=== PATIENT | male | born 1975 | race Caucasian/White ===

== ENCOUNTER → 2020-03-17 11:02 | Outpatient (BNVA) | payer MEDICAID, SELFPAY | PROVIDERS: Visit Provider Nurse Practitioner Family | DX: E11.9 Type 2 diabetes mellitus without complications (principal); Z79.4 Long term (current) use of insulin; R25.2 Cramp and spasm | CPT/HCPCS: 80053; 82044; 83036; 83735 ==

== ENCOUNTER → 2020-07-07 11:16 | Outpatient (BNVA) | payer MEDICAID, SELFPAY | PROVIDERS: Visit Provider Nurse Practitioner Family | DX: E11.9 Type 2 diabetes mellitus without complications (principal); E78.5 Hyperlipidemia, unspecified; F41.9 Anxiety disorder, unspecified | CPT/HCPCS: 80061; 82550; 83036; 84460 ==

== ENCOUNTER → 2021-02-17 10:02 | Outpatient (BNVA) | payer MEDICAID, SELFPAY | PROVIDERS: Visit Provider Nurse Practitioner Family | DX: E78.5 Hyperlipidemia, unspecified (principal); I10 Essential (primary) hypertension; E11.9 Type 2 diabetes mellitus without complications | CPT/HCPCS: 80053; 80061; 82043; 83036 ==

== ENCOUNTER → 2021-06-16 08:33 | Outpatient (BNVA) | payer BC, MEDICAID, SELFPAY | PROVIDERS: PCP Nurse Practitioner Family; Visit Provider Nurse Practitioner Family | DX: R35.0 Frequency of micturition (principal); Z79.899 Other long term (current) drug therapy; E11.9 Type 2 diabetes mellitus without complications; F41.9 Anxiety disorder, unspecified | CPT/HCPCS: 80053; 81000; 83036 ==

== ENCOUNTER → 2021-06-25 11:16 | Outpatient (BNVA) | payer BC, MEDICAID, SELFPAY | PROVIDERS: PCP Nurse Practitioner Family; Visit Provider Nurse Practitioner Family | DX: R74.8 Abnormal levels of other serum enzymes (principal); N48.89 Other specified disorders of penis | CPT/HCPCS: 80074; 82977; 83615; 84450; 84460; 86780; 87530 ==

== ENCOUNTER → 2021-06-26 10:03 | Outpatient (BNVA) | payer BC, MEDICAID, SELFPAY | PROVIDERS: PCP Nurse Practitioner Family; Visit Provider Nurse Practitioner Family | DX: R74.8 Abnormal levels of other serum enzymes (principal); N48.9 Disorder of penis, unspecified; R79.89 Other specified abnormal findings of blood chemistry; A51.0 Primary genital syphilis | CPT/HCPCS: 84075 ==

== ENCOUNTER 2021-07-02 11:29 | Outpatient (CLI) | payer BC, MEDICAID, SELFPAY ==
--- NOTE | 2021-07-02 11:00 | US_ITS ---
WS: [id number] Ultrasound pelvis, male. HISTORY: Pelvic pain. Possible hernia. Urinary bladder is well distended. No free fluid in the pelvis. No bladder wall thickening. Enlarged abnormal lymph node at the RIGHT lower quadrant. Patient directed marketing communication manager to area of pain. There is diffuse thickening of the cortex. There are additional smaller lymph nodes. Largest lymph node in the RIGHT lower quadrant measures 2.6 x 2.2 x 3.2 cm. Abdominal wall appears intact. No hernia identified. US/US pelvic complete* [id number] IMPRESSION: 1. No inguinal hernia is identified. 2. Lymphadenopathy in the RIGHT lower quadrant corresponds to the area of pain and discomfort as directed by the patient. Recommend follow-up CT abdomen and p bandar. Etiology of these abnormal lymph notes needs to be confirmed.
--- NOTE | 2021-07-02 11:00 | US_ITS ---
WS: [id number] TESTICULAR ULTRASOUND HISTORY: R10.31 - Right lower quadrant pain COMPARISON: None available. TECHNIQUE: Real-time and color Doppler imaging or utilized to perform a testicular ultrasound. Right testicle: 3.8 cm x 3.0 cm x 2.8 cm. Normal size and echogenicity. No mass or torsion. There is very slight increased vascularity within the testicle. No mass. Small simple hydrocele. Mild scrotal wall thickening. Right epididymis: Normal epididymis with no increased vascularity. Left testicle: 4.2 cm x 3.1 cm x 2.2 cm. Normal size and echogenicity. No mass or torsion. Normal color Doppler is present throughout. Systolic and diastolic velocities are both present. No significant hydrocele. Left epididymis: Normal epididymis with no increased vascularity. US/US scrotum [id number] IMPRESSION: 1. Mild increased vascularity within the RIGHT testicle as compared to the LEF T with a small adjacent hydrocele. Suspect mild orchitis. 2. No testicular mass. 3. Mild scrotal wall thickening.
--- NOTE | 2021-07-02 11:42 | US_ITS ---
WS: [id number] RIGHT UPPER QUADRANT ULTRASOUND HISTORY: LIVER PAIN COMPARISON: None available. Liver: 17.2 cm in length. Minimally enlarged liver. No hepatic steatosis. No bile duct dilatation or mass. Gallbladder: Normally distended gallbladder with no stones or wall thickening. CBD: 0.4 cm Pancreas: Normal size and echogenicity. Right kidney: 11.9 cm in length. Normal size and echogenicity. No hydronephrosis or mass. Aorta and IVC: Unremarkable abdominal aorta and IVC. No ascites. Benign-appearing lymph node at the michael hepatis. US/US abdomen limited [id number] IMPRESSION: Normal RIGHT upper quadrant ultrasound.
== END 2021-07-02 11:30 | disposition home or self-care (01) ==
LOC: RAD 11:32
PROVIDERS: PCP Nurse Practitioner Family; Visit Provider Surgery
DX: R10.31 Right lower quadrant pain (principal); R10.2 Pelvic and perineal pain
CPT/HCPCS: 76705; 76856; 76870

== ENCOUNTER → 2021-10-12 14:27 | Outpatient (BNVA) | payer BC, MEDICAID, SELFPAY | PROVIDERS: PCP Nurse Practitioner Family; Visit Provider Internal Medicine | DX: E10.65 Type 1 diabetes mellitus with hyperglycemia (principal); E16.0 Drug-induced hypoglycemia without coma; E78.5 Hyperlipidemia, unspecified; T38.3X5A Adverse effect of insulin and oral hypoglycemic [antidiabetic] drugs, initial encounter; Z79.4 Long term (current) use of insulin; F17.200 Nicotine dependence, unspecified, uncomplicated | CPT/HCPCS: 99214 ==

== ENCOUNTER 2021-10-12 15:32 | Outpatient (CLI) | payer BC, MEDICAID, SELFPAY ==
[2021-10-12 16:27] LABS: Alanine Aminotransferase 23 U/L (0-41); Albumin Level 4.6 g/dL (3.5-5.2); Alkaline Phosphatase 182 IU/L (40-130); Anion Gap 19.5 (5-19); Aspartate Amino Transferase 15 U/L (0-40); Blood Urea Nitrogen 9 mg/dL (6-20); Calcium 9.2 mg/dL (8.5-10.5); Carbon Dioxide 25 mmol/L (22-29); Chloride 98 mmol/L (98-107); Chol HDL Ratio 6.78 mg/dL (1.0-5.00); Cholesterol 217 mg/dL (0-200); Globulin 2.9 g/dL (1.3-4.6); Glomerular Filtration Rate 120.9 mL/min (90-130); Glucose 102 mg/dL (65-115); HDL Cholesterol 32 mg/dL (60-100); LDL Cholesterol Calculated 152 mg/dL (50-129); LDL HDL Ratio 4.75 RATIO (0.00-3.22); Osmolality Calculated 287 mOsm/kg (285-295); Potassium 3.5 mmol/L (3.5-5.1); Sodium 139 mmol/L (136-145); Total Protein 7.5 g/dL (6.6-8.7); Triglycerides 167 mg/dL (0-150)
[2021-10-12 16:51] LABS: Estmated Average Glucose 286; Hemoglobin A1C 11.6 % (4.0-6.0)
[2021-10-12 17:08] LABS: Creatinine Urine, Random 88 mg/dL (39-259); Microalbum Creatinine Ratio Ur 34 mg/dL (0-20); Microalbumin Random Urine 3 ug/dL (0-20)
== END 2021-10-12 15:33 | disposition home or self-care (01) ==
LOC: LAB 15:34
PROVIDERS: Visit Provider Internal Medicine
DX: E10.65 Type 1 diabetes mellitus with hyperglycemia (principal); E78.5 Hyperlipidemia, unspecified
CPT/HCPCS: 36415; 80053; 80061; 82044; 83036

== ENCOUNTER 2022-03-05 00:42 | Observation (INO) | payer BC, MEDICAID, SELFPAY ==
[2022-03-04] VITALS (46 sets, daily range): BP systolic 142; BP diastolic 107; PULSE 70–111; RESP 12–28; TEMP 36.8; O2SAT 97–100
[2022-03-04 20:28] LABS: Glucose Point of Care 192 mg/dL (70-110)
[2022-03-04 21:18] LABS: Glucose Point of Care 207 mg/dL (70-110)
[2022-03-04] MEDS: sodium chloride 0.9% 1,000 ML 30 ML IV (21:18)
[2022-03-04 21:19] LABS: Basophils # 0.1 10^3/uL (0.0-0.1); Basophils % 0.6 %; Eosinophils # 0.1 10^3/uL (0.0-0.8); Eosinophils % 0.6 %; Hematocrit 49.3 % (42.0-52.0); Hemoglobin 16.3 g/dL (11.7-16.6); Lymphocytes # 3.3 10^3/uL (0.8-4.8); Lymphocytes % 26.6 %; Mean Corpuscular HGB Conc 33.1 g/dL (30.0-36.0); Mean Corpuscular Volume 93.9 fl (80-94); Mean Platelet Volume 9.8 fL (7.4-10.4); Monocytes # 0.6 10^3/uL (0.2-0.9); Monocytes % 5.1 %; Neutrophils # 8.26 10^3/uL (1.8-7.7); Neutrophils % 66.6 %; Nucleated Red Blood Cells % 0 %; Platelet Count 344 10^3/cmm (130-400); Red Blood Count 5.25 10^6/uL (4.1-5.3); Red Cell Distribution Width 12.9 % (12.1-15.1); White Blood Count 12.4 10^3/uL (4.0-10.0)
[2022-03-04] MEDS: insulin regular-human 250 UNIT in sodium chloride 0.9% 250 ML IV (21:20)
[2022-03-04 21:33] LABS: INR 0.95 (0.8-1.2)
[2022-03-04 21:36] LABS: Alanine Aminotransferase 12 U/L (0-41); Albumin Level 4.6 g/dL (3.5-5.2); Alkaline Phosphatase 111 IU/L (40-130); Anion Gap 27.9 (5-19); Aspartate Amino Transferase 12 U/L (0-40); Blood Urea Nitrogen 10 mg/dL (6-20); Carbon Dioxide 13 mmol/L (22-29); Chloride 93 mmol/L (98-107); Globulin 2.4 g/dL (1.3-4.6); Glomerular Filtration Rate 90.4 mL/min (90-130); Glucose 224 mg/dL (65-115); Osmolality Calculated 274 mOsm/kg (285-295); Potassium 4.9 mmol/L (3.5-5.1); Sodium 129 mmol/L (136-145); Total Bilirubin 1.6 mg/dL (0.15-1.2)
[2022-03-04 21:39] LABS: Ketone (Acetest) Serum Positive (Negative)
[2022-03-04 21:40] LABS: Estmated Average Glucose 283; Hemoglobin A1C 11.5 % (4.0-6.0)
[2022-03-04 22:11] LABS: Glucose Point of Care 231 mg/dL (70-110)
--- NOTE | 2022-03-04 22:46 | P.HP_ITS ---
Providers/Chief Complaint Admitting Physician: Bryan Jiménez MD Chief Complaint: DKA History of Present Illness Villa Cooper is a 46 year old male with h/o poorly controlled IDDM who stated he has had nausea, vomiting and diarrhea for the past week. Patient seen at outside facility and given some IVF for dehydration and discharged home. Patient subsequently continued to be symptomatic and also described myalgias and ongoing nausea. Patient states he was unable to keep anything down. He went to [facility] and was noted to be in DKA. Patient has had previous episodes of same. Patient was started on IVF and transferred here. On arrival, labs ordered- and noted to have blood sugar of 224, CO2 of 13 with elevated AG of 27.9 and positive serum ketones. Patient is hemodynamically stable. He denies further nausea, however, does have heartburn. Overall he feels improved. Review of Systems General: Reports: 10 or more systems reviewed and unremarkable except in HPI and below Const: Reports: body aches, fatigue and malaise; Denies: fever(s) or chills Eyes: Denies: change in vision or blurry vision ENMT: Denies: throat pain or hoarseness Card: Denies: chest pain, palpitations or irregular heart rhythm Resp: Denies: dyspnea, productive cough, non-productive cough or wheezing GI: Reports: abdominal pain, nausea and heartburn; Denies: vomiting, dysphagia or diarrhea : Denies: flank pain or urinary frequency Musc: Denies: neck pain or back pain Skin/Breast: Denies: rash, pruritus or erythema Neuro: Denies: headache(s), numbness in extremities or weakness in extremities Psych: Denies: anxiety, depression or mood swings Endo: Reports: polydipsia and tired all the time; Denies: polyuria Paco/Lymph: Denies: easy bruising or easy bleeding Medications/Allergies Home Medications Medication Instructions Recorded Confirmed Last Taken Type blood-glucose meter (Blood Glucose #1 each 08/15/20 10/12/21 Unknown Rx Monitoring) loratadine 10 mg capsule 10 mg PO DAILY #30 cap 02/17/21 10/12/21 Unknown Rx sildenafil 100 mg tablet (Viagra) 100 mg PO DAILY PRN #30 tab 02/17/21 10/12/21 Unknown Rx fluticasone propionate 50 See Rx Instructions .ROUTE 08/05/21 10/12/21 Unknown Rx mcg/actuation nasal .COMPLEX #16 g spray,suspension atorvastatin 40 mg tablet 40 mg PO DAILY #90 tab 10/13/21 Unknown Rx pen needle, diabetic 32 gauge x See Rx Instructions .ROUTE 10/27/21 Unknown Rx (Pentips) .COMPLEX #200 ea insulin aspart U-100 100 unit/mL See Rx Instructions .ROUTE 11/02/21 Unknown Rx (3 mL) subcutaneous pen (Novolog .COMPLEX #45 ml Flexpen U-100 Insulin aspart) insulin glargine 100 unit/mL (3 See Rx Instructions .ROUTE 11/02/21 Unknown Rx mL) subcutaneous pen (Lantus .COMPLEX #45 ml Solostar U-100 Insulin) blood sugar diagnostic (OneTouch See Rx Instructions .ROUTE 02/08/22 Unknown Rx Ultra Test) .COMPLEX #100 ea Allergies Allergy/AdvReac Type Severity Reaction Status Date / Time No Known Allergies Allergy Verified 10/12/21 14:36 PFSH Acute PFSH: Medical History GERD (gastroesophageal reflux disease) Hyperlipidemia Surgical History Hx of hernia repair Family History Father Cancer Cirrhosis of liver Mother Hyperlipidemia Vitals/I&O/Wt Last Vital Signs Temp 98.3 F 03/04/22 20:25 Pulse 81 03/04/22 22:20 Resp 20 H 03/04/22 22:20 BP 142/107 03/04/22 22:20 Pulse Ox 99 03/04/22 22:20 03/04/22 03/04/22 03/04/22 06:59 14:59 22:59 Intake Total 4.07 / 4.07 Output Total 500 / 500 Balance -495.93 / -495.93 Weight last 48 hrs Weight 73.028 kg Physical Exam Const: COMMON NORMALS: no acute distress, patient oriented x3 and alert HENMT: HEAD & SCALP: normocephalic and atraumatic Eye: PUPIL: Yes Equal, round and reactive pupils present Neck/C-Spine: COMMON NORMALS: full ROM and no lymphadenopathy Chest: CHEST: Yes Symmetrical chest wall rise Resp: AUSCULTATION: clear to auscultation bilaterally Cardio: RATE: regular rate RHYTHM: regular rhythm HEART SOUNDS: S1 normal heart sound present and no murmurs GI: PALPATION: No Soft to palpation, No Firmness to palpation present (GI), No Tenderness to palpation present (GI) and No No hepatosplenomegaly present Back/Pelvis: COMMON NORMALS: negative for no CVA tenderness Extremity: COMMON NORMALS: normal to inspection, full ROM and no pedal edema Neuro: COMMON NORMALS: moves all extremities and no focal motor deficits SENSORIUM/ORIENTATION: Yes alert and Yes oriented to person Psych: APPEARANCE: Yes grossly normal ATTITUDE: Yes calm SPEECH: Yes normal speech Skin: COMMON NORMALS: no rashes or lesions noted Data : 03/04/22 21:05 03/04/22 21:05 A&P Assessment and plan (1) DKA, type 1: Patient is 46 year old male with h/o poorly controlled IDDM who presented from outside facility with nausea, vomiting and abdominal pain- noted to be in DKA. Labs reveal blood sugar of 224, CO2 13, AG of 27.9 and A1C 11.5. Patient on insulin infusion, IVF, hourly monitoring of blood glucose per DKA protocol. Monitor electrolytes closely Advance diet as tolerated. Mylanta prn for heartburn. Zofran as needed for nausea. Status: Acute Attestations Medical Necessity Statement*: Placed in observation for assesment and managem ent of DKA, nausea and vomiting. Coding Level of Care Code Acute Senior Structural Engineer for Chg Fwd Exam Comprehensive Medical Decision Making Moderate Complexity Diagnoses DKA, type 1 E10.10
[2022-03-04] MEDS: ondansetron 2 mg/ML SDV 2 mL 4 MG IVP (23:04)
[2022-03-04] MEDS: alum-mag-hydroxide-sime 30 mL UDC PO (23:04)
[2022-03-05] VITALS (80 sets, daily range): BP systolic 110–142; BP diastolic 62–107; PULSE 63–138; RESP 10–27; TEMP 36.6; O2SAT 95–100
[2022-03-05 00:05] LABS: Glucose Point of Care 130 mg/dL (70-110)
[2022-03-05] MEDS: dextrose 5%-sod chloride 0.45% 1,000 ML 100 ML IV ×2 (00:10→10:16)
[2022-03-05 02:17] LABS: Glucose Point of Care 122 mg/dL (70-110)
[2022-03-05 02:17] LABS: Glucose Point of Care 128 mg/dL (70-110)
[2022-03-05 02:43] LABS: Blood Urea Nitrogen 9 mg/dL (6-20); Carbon Dioxide 14 mmol/L (22-29); Chloride 100 mmol/L (98-107); Glomerular Filtration Rate 120.9 mL/min (90-130); Glucose 129 mg/dL (65-115); Magnesium 2.1 mg/dL (1.7-2.3); Osmolality Calculated 272 mOsm/kg (285-295); Phosphorus 2.1 mg/dL (2.5-4.5); Sodium 131 mmol/L (136-145)
[2022-03-05 03:02] LABS: Glucose Point of Care 136 mg/dL (70-110)
[2022-03-05 03:11] LABS: Add Urine Microscopic? NO; Charge for UA Resulting for Rev
[2022-03-05 03:12] LABS: Bilirubin Urine Neg (Negative); Blood Urine Neg (Negative); Glucose Urine UA 4+ (Normal); Ketones Urine 3+ (Negative); Leukocyte Esterase Urine Negative (Negative); Nitrate Urine Negative (Negative); Protein Urine Neg (Negative); Urine Appearance Clear (CLEAR); Urine Color Yellow (Yellow); Urobilinogen Urine Norm (Negative); pH Urine 5 (5-7)
[2022-03-05] MEDS: alum-mag-hydroxide-sime 30 mL UDC PO (03:26)
[2022-03-05 04:14] LABS: Glucose Point of Care 107 mg/dL (70-110)
[2022-03-05 05:12] LABS: Glucose Point of Care 124 mg/dL (70-110)
[2022-03-05 06:11] LABS: Glucose Point of Care 110 mg/dL (70-110)
[2022-03-05 06:32] LABS: Anion Gap 20.8 (5-19); Blood Urea Nitrogen 8 mg/dL (6-20); Calcium 8.3 mg/dL (8.5-10.5); Carbon Dioxide 17 mmol/L (22-29); Chloride 100 mmol/L (98-107); Glomerular Filtration Rate 120.9 mL/min (90-130); Glucose 118 mg/dL (65-115); Magnesium 2.1 mg/dL (1.7-2.3); Osmolality Calculated 277 mOsm/kg (285-295); Phosphorus 2.4 mg/dL (2.5-4.5); Potassium 3.8 mmol/L (3.5-5.1); Sodium 134 mmol/L (136-145)
[2022-03-05 07:04] LABS: Glucose Point of Care 124 mg/dL (70-110)
[2022-03-05 08:26] LABS: Glucose Point of Care 150 mg/dL (70-110)
[2022-03-05 08:43] LABS: Glucose Point of Care 175 mg/dL (70-110)
[2022-03-05] MEDS: pantoprazole DR 40 mg Tablet PO (08:43)
[2022-03-05 09:34] LABS: Glucose Point of Care 222 mg/dL (70-110)
[2022-03-05] MEDS: lidocaine 1% 5 ML in potassium chloride premix 100 ML 25 ML IV (10:17)
[2022-03-05 10:41] LABS: Anion Gap 16.8 (5-19); Blood Urea Nitrogen 7 mg/dL (6-20); Calcium 7.3 mg/dL (8.5-10.5); Carbon Dioxide 18 mmol/L (22-29); Chloride 99 mmol/L (98-107); Glomerular Filtration Rate 103.6 mL/min (90-130); Glucose 237 mg/dL (65-115); Magnesium 1.8 mg/dL (1.7-2.3); Osmolality Calculated 276 mOsm/kg (285-295); Phosphorus 2.2 mg/dL (2.5-4.5); Potassium 3.8 mmol/L (3.5-5.1); Sodium 130 mmol/L (136-145)
[2022-03-05 11:45] LABS: Glucose Point of Care 170 mg/dL (70-110)
[2022-03-05] MEDS: insulin glargine 100 units/1 mL 30 UNIT SUBCUT (11:50)
--- NOTE | 2022-03-05 13:19 | P.DS_ITS ---
Discharge Providers Date of Admission: 03/05/22 00:42 Date of Discharge: March 05, 2022 Attending Provider at Admission: Bryan Jiménez MD Attending Provider at Discharge: Bryan Jiménez MD Diagnoses at Discharge Discharge Diagnosis (1) DKA, type 1: Status: Acute Reason for Visit Reason for Visit: DKA Hospital Course Hospital Course HPI: Radha Uribe MD 46 year old male with h/o poorly controlled IDDM who stated he has had nausea, vomiting and diarrhea for the past week. Patient seen at outside facility and given some IVF for dehydration and discharged home. Patient subsequently continued to be symptomatic and also described myalgias and ongoing nausea. Patient states he was unable to keep anything down. He went to [facility] and was noted to be in DKA. Patient has had previous episodes of same. Patient was started on IVF and transferred here. On arrival, labs ordered- and noted to have blood sugar of 224, CO2 of 13 with elevated AG of 27.9 and positive serum ketones. Patient is hemodynamically stable. He denies further nausea, however, does have heartburn. Overall he feels improved. Hospital course: Patient was admitted for the management of DKA likely precipitated by acute gastroenteritis ,He was kept on DKA protocol, he was kept on insulin drip, IV hydration, BMP, fingerstick blood sugar was monitored as per the protocol, electrolyte correction was undertaken, once the anion gap closed, insulin drip was bridged with long-acting insulin Lantus for an hour, thereafter insulin drip was, turned off, patient was tolerating diet well, and any nausea vomiting abdominal pain. He was continued on his home insulin regimen, he responded well to above medical management, he is being discharged in stable condition to home, he will continue to follow with his primary care physician as an outpatient as well as her medical anthropologist as outpatient. Physical Exam Const: COMMON NORMALS: patient oriented x3 HENMT: COMMON NORMALS: normocephalic and atraumatic HEAD & SCALP: normocephalic and atraumatic Chest: CHEST: Yes Symmetrical chest wall rise Resp: COMMON NORMALS: normal respiratory effort, No retractions and clear to auscultation bilaterally EFFORT & INSPECTION: Yes symmetric chest movement AUSCULTATION: clear to auscultation bilaterally Cardio: COMMON NORMALS: regular rate, regular rhythm, S1 normal heart sound present, S2 normal heart sound present, No gallops present (Cardio), No murmurs present (Cardio), No rub (Cardio) and Peripheral pulses 2+ throughout RATE: regular rate RHYTHM: regular rhythm HEART SOUNDS: S1 normal heart sound present and S2 normal heart sound present PERIPHERAL PULSES: Peripheral pulses 2+ throughout GI: COMMON NORMALS: Normal to inspection, nondistended, normoactive bowel sounds present, Soft to palpation, non-tender, No hepatosplenomegaly present and no masses AUSCULTATION: Yes normoactive bowel sounds PALPATION: Yes Soft to palpation and Yes No hepatosplenomegaly present RECTAL EXAM: Yes deferred Extremity: COMMON NORMALS: no clubbing, cyanosis or edema and no pedal edema Neuro: COMMON NORMALS: patient oriented x3 Discharge Data Studies Completed and Pending Pending at discharge Category Date Time Status Basic Metabolic Panel Q4H Lab 03/05/22 14:00 Ordered Basic Metabolic Panel Q4H Lab 03/05/22 18:00 Ordered Basic Metabolic Panel Q4H Lab 03/05/22 22:00 Ordered CBC Auto Diff [Complete Blood Count w/Auto] AM LABS Lab 03/06/22 04:00 Ordered CBC Auto Diff [Complete Blood Count w/Auto] AM LABS Lab 03/07/22 04:00 Ordered CBC Auto Diff [Complete Blood Count w/Auto] AM LABS Lab 03/08/22 04:00 Ordered Magnesium Q4H Lab 03/05/22 14:00 Ordered Magnesium Q4H Lab 03/05/22 18:00 Ordered Magnesium Q4H Lab 03/05/22 22:00 Ordered Phosphorus Q4H Lab 03/05/22 14:00 Ordered Phosphorus Q4H Lab 03/05/22 18:00 Ordered Phosphorus Q4H Lab 03/05/22 22:00 Ordered Laboratory Results WBC 12.4 10^3/uL (4.0-10.0) H 03/04/22 21:05 RBC 5.25 10^6/uL (4.1-5.3) 03/04/22 21:05 Hgb 16.3 g/dL (11.7-16.6) 03/04/22 21:05 Hct 49.3 % (42.0-52.0) 03/04/22 21:05 MCV 93.9 fl (80-94) 03/04/22 21:05 MCH 31.0 pg (28.0-34.0) 03/04/22 21:05 MCHC 33.1 g/dL (30.0-36.0) 03/04/22 21:05 RDW 12.9 % (12.1-15.1) 03/04/22 21:05 Plt Count 344 10^3/cmm (130-400) 03/04/22 21:05 MPV 9.8 fL (7.4-10.4) 03/04/22 21:05 Neut % (Auto) 66.6 % 03/04/22 21:05 Lymph % (Auto) 26.6 % 03/04/22 21:05 [place] % (Auto) 5.1 % 03/04/22 21:05 Eos % (Auto) 0.6 % 03/04/22 21:05 Baso % (Auto) 0.6 % 03/04/22 21:05 Neut # (Auto) 8.26 10^3/uL (1.8-7.7) H 03/04/22 21:05 Lymph # (Auto) 3.3 10^3/uL (0.8-4.8) 03/04/22 21:05 [place] # (Auto) 0.6 10^3/uL (0.2-0.9) 03/04/22 21:05 Eos # (Auto) 0.1 10^3/uL (0.0-0.8) 03/04/22 21:05 Baso # (Auto) 0.1 10^3/uL (0.0-0.1) 03/04/22 21:05 Nucleated RBC % (auto) 0 % 03/04/22 21:05 Nucleated RBCs # 0.0 /100WBC 03/04/22 21:05 PT 12.90 SECONDS (12.1-14.9) 03/04/22 21:05 INR 0.95 (0.8-1.2) 03/04/22 21:05 Sodium 130 mmol/L (136-145) L 03/05/22 10:08 Potassium 3.8 mmol/L (3.5-5.1) 03/05/22 10:08 Chloride 99 mmol/L (98-107) 03/05/22 10:08 Carbon Dioxide 18 mmol/L (22-29) L 03/05/22 10:08 Anion Gap 16.8 (5-19) 03/05/22 10:08 BUN 7 mg/dL (6-20) 03/05/22 10:08 Creatinine 0.8 mg/dL (0.7-1.2) 03/05/22 10:08 GFR Calculation 103.6 mL/min (90-130) 03/05/22 10:08 Glucose 237 mg/dL (65-115) H 03/05/22 10:08 POC Glucose 170 mg/dL (70-110) H 03/05/22 11:41 Estimat Average Glucose 283 03/04/22 21:05 Hemoglobin A1c 11.5 % (4.0-6.0) H 03/04/22 21:05 Calculated Osmolality 276 mOsm/kg (285-295) L 03/05/22 10:08 Calcium 7.3 mg/dL (8.5-10.5) L 03/05/22 10:08 Phosphorus 2.2 mg/dL (2.5-4.5) L 03/05/22 10:08 Magnesium 1.8 mg/dL (1.7-2.3) 03/05/22 10:08 Total Bilirubin 1.6 mg/dL (0.15-1.2) H 03/04/22 21:05 AST 12 U/L (0-40) 03/04/22 21:05 ALT 12 U/L (0-41) 03/04/22 21:05 Alkaline Phosphatase 111 IU/L (40-130) 03/04/22 21:05 Total Protein 7.0 g/dL (6.6-8.7) 03/04/22 21:05 Albumin 4.6 g/dL (3.5-5.2) 03/04/22 21:05 Globulin 2.4 g/dL (1.3-4.6) 03/04/22 21:05 Urine Color Yellow (Yellow) 03/05/22 02:15 Urine Appearance Clear (CLEAR) 03/05/22 02:15 Urine pH 5 (5-7) 03/05/22 02:15 Ur Specific [place] 1.030 (1.005-1.030) 03/05/22 02:15 Urine Protein Neg (Negative) 03/05/22 02:15 Urine Glucose (UA) 4+ (Normal) H 03/05/22 02:15 Urine Ketones 3+ (Negative) H 03/05/22 02:15 Urine Blood Neg (Negative) 03/05/22 02:15 Urine Nitrate Negative (Negative) 03/05/22 02:15 Urine Bilirubin Neg (Negative) 03/05/22 02:15 Urine Urobilinogen Norm mg/dL (Negative) 03/05/22 02:15 Ur Leukocyte Esterase Negative (Negative) 03/05/22 02:15 Serum Ketones Positive (Negative) H 03/04/22 21:05 Vitals Last Vital Signs Temp 97.8 F 03/05/22 03:00 Pulse 98 03/05/22 12:00 Resp 18 03/05/22 12:00 BP 118/70 03/05/22 02:30 Pulse Ox 100 03/05/22 12:00 Discharge Plan Discharge Patient Disposition: Home Condition: Stable Prescriptions: Continued (DME) blood-glucose meter [Blood Glucose Monitoring] Kit See Rx Instructions .ROUTE .MEDSUPPLY Qty: 1 0RF Rx Instructions: As directed atorvastatin 40 mg tablet 40 mg PO DAILY Qty: 90 3RF pen needle, diabetic [Pentips] 32 gauge x 5/32 needle See Rx Instructions .ROUTE .COMPLEX Qty: 200 3RF Dose Instruction: USE WITH LANTUS AND NOVOLOG UP TO 6 TIMES DAILY Rx Instructions: USE WITH LANTUS AND NOVOLOG UP TO 6 TIMES DAILY insulin aspart U-100 [Novolog Flexpen U-100 Insulin] 100 unit/mL (3 mL) insulin pen See Rx Instructions .ROUTE .COMPLEX Qty: 45 3RF Dose Instruction: INJECT 6U SUBQ THREE TIMES DAILY DIRECTED Rx Instructions: INJECT sliding scale SUBQ THREE TIMES DAILY DIRECTED PRN IF BLOOD SUGAR IS 400 OR ABOVE TAKE 18 UNITS OneTouch Ultra Test Strip See Rx Instructions .ROUTE .COMPLEX Qty: 100 3RF Dose Instruction: USE TO CHECK BLOOD SUGAR THREE TIMES DAILY Rx Instructions: USE TO CHECK BLOOD SUGAR THREE TIMES DAILY Cold and Flu Medicine 2-5-325 mg Tablet 1 tab PO BID PRN (Reason: Flu Symptoms) 0RF Zofran 4 mg Tablet 4 mg PO Q8H PRN (Reason: Nausea And Vomiting) 0RF Tylenol Ex Str Rapid Release 500 mg Tablet 500 mg PO Q6H PRN (Reason: Pain) 0RF ibuprofen 200 mg Tablet 200 mg PO Q6H PRN (Reason: Pain) 0RF Viagra 100 mg tablet 100 mg PO DAILY PRN (Reason: Erectile Dysfunction) 0RF fluticasone propionate 50 mcg/actuation spray,suspension 2 spray intranasal DAILY PRN (Reason: Allergy Symptoms) 0RF Lantus Solostar U-100 Insulin 100 unit/mL (3 mL) insulin pen 30 - 40 unit SUBCUT BEDTIME 0RF loratadine 10 mg capsule 10 mg PO DAILY PRN (Reason: Allergy Symptoms) 0RF Discharge Orders: Discharge Order (Routine); Ordered 03/05/22 Ordered By: Bryan Jiménez Discharge Diet: Diabetic Discharge Activity: Resume usual activity Patient Instructions: Opioid Safety Discharge Attestations Time Spent in Discharge Care*: less than 30 min Quality Metrics Clinical Quality Measures [ No reported AMI, CVA or VTE this stay] Coding Level of Care Code Acute Chg FW DC note Diagnoses DKA, type 1 E10.10
--- NOTE | 2022-03-05 13:59 | PC.NURSE ---
Discharge instructions given to patient. No new prescriptions. Patient and belongings walked to front entrance by this nurse. Patient wanted to wait outside on ride since it is a nice day.
[2022-03-05 17:15] LABS: Glucose Point of Care 222 mg/dL (70-110)
== END 2022-03-05 13:55 | disposition home or self-care (01) ==
PROVIDERS: Internal Medicine; Admitting Provider Internal Medicine; Visit Provider Internal Medicine
DX: E10.10 Type 1 diabetes mellitus with ketoacidosis without coma (principal); Z79.4 Long term (current) use of insulin; E78.5 Hyperlipidemia, unspecified
CPT/HCPCS: 12345; 36415; 36416; 80048; 80053; 81003; 82009; 82962; 83036; 83735; 84100; 85025; 85610; 96372; G0378; G0379; J1815 ×2; J2405; J3480; J7030; J7050; J7799

== ENCOUNTER 2023-01-17 23:21 | Inpatient (IN) | payer BC, SELFPAY ==
--- NOTE | 2023-01-17 23:23 | W.ED.GENADLT ---
Documented by User: JENNIE Scott 01/18/23 01:15 HPI - General Adult General: Chief complaint: General Medical Stated complaint: High blood glucose Time Seen by Provider: 01/17/23 23:23 History of Present Illness: 47-year-old male patient comes in today for concerns he may be in diabetic ketoacidosis. Patient has been treated at [facility] emergency room for gastroenteritis and was sent home with antibiotics and medications. Patient reports that he did not feel better today and came to the ER for further evaluation and treatment. On exam patient is alert and oriented. Patient appears nontoxic. Patient complains of neuropathy type pain in his extremities. Patient has had diabetes mellitus since age of 4. Patient also has a history of hyperlipidemia and syphilis. Associated symptoms: Reports nausea; Deny chest pain, dyspnea, headache(s) or rash Review of Systems General: Reports: 10 or more systems reviewed and unremarkable except in HPI and below Const: Denies: fever(s) ENMT: Reports: dental pain Card: Denies: chest pain Resp: Denies: dyspnea GI: Reports: nausea; Denies: diarrhea (No diarrhea since yesterday) : Denies: flank pain Musc: Reports: extremity pain Skin/Breast: Denies: rash Neuro: Denies: headache(s) PFS ED PFSH: Medical History (Updated 01/18/23 @ 14:34 by Bryan Jiménez MD) DKA, type 1 DM type 1 (diabetes mellitus, type 1) GERD (gastroesophageal reflux disease) Hyperlipidemia Surgical History Hx of hernia repair Family History Father Cancer Cirrhosis of liver Mother Hyperlipidemia Social History (Updated 01/18/23 @ 01:13 by Lorenzo Goodrich MD) Smoking and tobacco status: current every day smoker Household members: other Details: Daughter Physical Exam Const: COMMON NORMALS: alert HENMT: COMMON NORMALS: normocephalic HEAD & SCALP: normocephalic TEETH & GINGIVA: Yes poor dentition Neck/C-Spine: COMMON NORMALS: full ROM Resp: COMMON NORMALS: normal respiratory effort and clear to auscultation bilaterally AUSCULTATION: clear to auscultation bilaterally Cardio: COMMON NORMALS: regular rate and regular rhythm RATE: regular rate RHYTHM: regular rhythm GI: COMMON NORMALS: Soft to palpation AUSCULTATION: Yes normoactive bowel sounds PALPATION: Yes Soft to palpation and Yes Tenderness to palpation present (GI) (Mild generalized) : COMMON NORMALS: Yes no CVA tenderness BLADDER/KIDNEY EXAM: Yes no CVA tenderness Back/Pelvis: COMMON NORMALS: no CVA tenderness Extremity: COMMON NORMALS: normal to inspection Neuro: SENSORIUM/ORIENTATION: Yes alert Skin: COMMON NORMALS: turgor normal GENERAL SKIN EXAM: turgor normal Course ED course: 003, reviewed patient with Dr. Walton for concerns of abnormal carbon dioxide level and anion gap suspicious for DKA. He reviewed the labs and felt the patient might need to have insulin drip and further treatment and admission. Patient was turned over to his care. Vital Signs: Vital signs: Vital Signs Temperature 98.7 F 01/18/23 02:00 Pulse Rate 85 01/19/23 01:00 Respiratory Rate 15 01/19/23 01:00 Blood Pressure 127/62 01/19/23 01:00 Pulse Oximetry 99 01/19/23 01:00 Oxygen Delivery Me thod 01/18/23 02:07 [facility] - General Adult Medical Decision Making 47-year-old male patient comes in today for concerns that he may be in diabetic ketoacidosis. Patient was seen at a prior emergency room yesterday in [facility]. Patient was diagnosed with gastroenteritis in the emergency department yesterday but feel he has worsened and is concerned that he may be going into DKA. On exam patient complained of some upper extremity numbness and tingling and pain which is normal for his neuropathy. Patient was given medication for his diarrhea and has not had any diarrhea stools today. But has had continued nausea. On exam abdomen soft nontender. Lungs are clear to auscultation. Differential diagnosis includes but not limited to gastroenteritis, dehydration, diabetic ketoacidosis. Lab Data 01/17/23 23:30 01/17/23 23:30 Radiology Impressions Abdomen/Pelvis CT 01/18/23 01:02 IMPRESSION: 1. No acute abnormality seen on the abdomen and pelvis CT. 2. Small hiatal hernia. Laboratory Results WBC 29.9 10^3/uL (4.0-10.0) H 01/17/23 23:30 RBC 5.09 10^6/uL (4.1-5.3) 01/17/23 23:30 Hgb 15.7 g/dL (11.7-16.6) 01/17/23 23:30 Hct 48.3 % (42.0-52.0) 01/17/23 23:30 MCV 94.9 fl (80-94) H 01/17/23 23:30 MCH 30.8 pg (28.0-34.0) 01/17/23 23: MCHC 32.5 g/dL (30.0-36.0) 01/17/23 23: RDW 12.9 % (12.1-15.1) 01/17/23: Plt Count 379 10^3/cmm (130-400) 01/17/23 23: MPV 9.9 fL (7.4-10.4) 01/17/23 23:30 Neut % (Auto) 86.8 % 01/17/23 23: Lymph % (Auto) 7.3 % 01/17/23 23:30 Wright % (Auto) 4.1 % 01/17/23 23:30 Eos % (Auto) 0.1 % 01/17/23 23:30 Baso % (Auto) 0.6 % 01/17/23 23:30 Neut # (Auto) 25.93 10^3/uL (1.8-7.7) H 01/17/23 23:30 Lymph # (Auto) 2.2 10^3/uL (0.8-4.8) 01/17/23 23:30 Wright # (Auto) 1.2 10^3/uL (0.2-0.9) H 01/17/23 23:30 Eos # (Auto) 0.0 10^3/uL (0.0-0.8) 01/17/23 23:30 Baso # (Auto) 0.2 10^3/uL (0.0-0.1) H 01/17/23 23:30 Nucleated RBC % (auto) 0 % 01/17/23 23: Nucleated RBCs # 0.0 /100WBC 01/17/23 23:30 Specimen Type Arterial 01/18/23 00:31 Sample Site Radial, left 01/18/23 00:31 ABG pH 7.12 (7.35-7.45) L* 01/18/23 00:31 ABG pCO2 18.4 mmHg (35-45) L* 01/18/23 00:31 ABG pO2 123.0 mmHg (80.0-100.0) H 01/18/23 00:31 ABG HCO3 6.0 mmol/L (22-26) L 01/18/23 00:31 ABG Base Excess -21.1 mmol/L (-2.0-2.0) L 01/18/23 00:31 Terry Test Pos 01/18/23 00:31 Hematocrit 53.2 % (42-52) H 01/18/23 00:31 O2 Delivery Device None 01/18/23 00:31 [employer] ID [email or web address] 01/18/23 00:31 Sodium 132 mmol/L (136-145) L 01/17/23 23:30 Potassium 6.1 mmol/L (3.5-5.1) H 01/17/23 23:30 Chloride 92 mmol/L (98-107) L 01/17/23 23:30 Carbon Dioxide 9 mmol/L (22-29) L 01/17/23 23:30 Anion Gap 37.1 (5-19) H 01/17/23 23:30 BUN 17 mg/dL (6-20) 01/17/23 23:30 Creatinine 1.2 mg/dL (0.7-1.2) 01/17/23 23:30 GFR Calculation 64.6 mL/min (90-130) L 01/17/23 23:30 Glucose 363 mg/dL (65-115) H 01/17/23 23:30 POC Glucose 487 mg/dL (70-110) H 01/18/23 01:08 Calculated Osmolality 290 mOsm/kg (285-295) 01/17/23 23:30 Lactic Acid 3.8 mmol/L (0.5-2.2) H 01/17/23 23:30 Calcium 8.5 mg/dL (8.5-10.5) 01/17/23 23:30 Total Bilirubin 1.3 mg/dL (0.15-1.2) H 01/17/23 23:30 AST 14 U/L (0-40) 01/17/23 23:30 ALT 16 U/L (0-41) 01/17/23 23:30 Alkaline Phosphatase 154 U/L (40-130) H 01/17/23 23:30 Total Protein 7.2 g/dL (6.6-8.7) 01/17/23 23:30 Albumin 4.2 g/dL (3.5-5.2) 01/17/23 23:30 Globulin 3.0 g/dL (1.3-4.6) 01/17/23 23:30 Lipase 9 U/L (13-60) L 01/17/23 23:30 Urine Color Colorless (Yellow) 01/17/23 23:30 Urine Appearance Clear (CLEAR) 01/17/23 23:30 Urine pH 5 (5-7) 01/17/23 23:30 Ur Specific [place] 1.025 (1.005-1.030) 01/17/23 23:30 Urine Protein Neg (Negative) 01/17/23 23:30 Urine Glucose (UA) 4+ (Normal) H 01/17/23 23:30 Urine Ketones 3+ (Negative) H 01/17/23 23:30 Urine Blood Neg (Negative) 01/17/23 23:30 Urine Nitrate Negative (Negative) 01/17/23 23:30 Urine Bilirubin Neg (Negative) 01/17/23 23:30 Urine Urobilinogen Norm mg/dL (Negative) 01/17/23 23:30 Ur Leukocyte Esterase Negative (Negative) 01/17/23 23:30 Serum Ketones Negative (Negative) 01/17/23 23:30 Discharge Plan Discharge Patient Disposition: Admitted As Inpatient Admit Provider: Lorenzo Goodrich Clinical Impression: DKA (diabetic ketoacidosis) Condition: Stable Sign Out Sign Out Data: Patient Sign Out occurred on 01/18/23 at 00:37. Patient's care was discussed, and care was transferred from to Blake Walton MD. Coding Level of Care Code ED Hi Teacher for Chg Fwd Documented by User: Blake Walton MD 01/19/23 02:25 HPI - General Adult General: Chief complaint: General Medical Stated complaint: High blood glucose Time Seen by Provider: 01/17/23 23:23 [facility] ED PFSH: Medical History (Updated 01/18/23 @ 14:34 by Bryan Jiménez MD) DKA, type 1 DM type 1 (diabetes mellitus, type 1) GERD (gastroesophageal reflux disease) Hyperlipidemia Surgical History Hx of hernia repair Family History Father Cancer Cirrhosis of liver Mother Hyperlipidemia Social History (Updated 01/18/23 @ 01:13 by Lorenzo Goodrich MD) Smoking and tobacco status: current every day smoker Household members: other Details: Daughter Course Vital Signs: Vital signs: Vital Signs Temperature 98.7 F 01/18/23 02:00 Pulse Rate 85 01/19/23 01:00 Respiratory Rate 15 01/19/23 01:00 Blood Pressure 127/62 01/19/23 01:00 Pulse Oximetry 99 01/19/23 01:00 Oxygen Delivery Me thod 01/18/23 02:07 MDM - General Adult Medical Decision Making 47-year-old male patient comes in today for concerns that he may be in diabetic ketoacidosis. Patient was seen at a prior emergency room yesterday in [facility]. Patient was diagnosed with gastroenteritis in the emergency department yesterday but feel he has worsened and is concerned that he may be going into DKA. On exam patient complained of some upper extremity numbness and tingling and pain which is normal for his neuropathy. Patient was given medication for his diarrhea and has not had any diarrhea stools today. But has had continued nausea. On exam abdomen soft nontender. Lungs are clear to auscultation. Differential diagnosis includes but not limited to gastroenteritis, dehydration, diabetic ketoacidosis. Patient care discussed with Stew SCHNEIDER. I reviewed documentation, labs, imaging. I personally saw and evaluated the patient and reperformed gan portions of E/M. Clinical presentation consistent with DKA. Patient received 2 L IV fluids. Additional 1 L ordered and insulin drip. Analgesia given. The results of ED evaluation were discussed with the patient including plan for admission due to requirement for level of care not available if discharged to prevent significant worsening/deterioration. Patient agreeable with plan. Discussed with hospitalist service who was agreeable to admit patient. CT ordered given reported abdominal symptoms to ensure no underlying trigger for DKA. Lab Data 01/17/23 23:30 01/17/23 23:30 Radiology Impressions Abdomen/Pelvis CT 01/18/23 01:02 IMPRESSION: 1. No acute abnormality seen on the abdomen and pelvis CT. 2. Small hiatal hernia. Laboratory Results WBC 29.9 10^3/uL (4.0-10.0) H 01/17/23 23:30 RBC 5.09 10^6/uL (4.1-5.3) 01/17/23: Hgb 15.7 g/dL (11.7-16.6) 01/17/23 23: Hct 48.3 % (42.0-52.0) 01/17/23: MCV 94.9 fl (80-94) H 01/17/23 23: MCH 30.8 pg (28.0-34.0) 01/17/23 23: MCHC 32.5 g/dL (30.0-36.0) 01/17/23 23: RDW 12.9 % (12.1-15.1) 01/17/23 23: Plt Count 379 10^3/cmm (130-400) 01/17/23 23: MPV 9.9 fL (7.4-10.4) 01/17/23 23: Neut % (Auto) 86.8 % 01/17/23 23:30 Lymph % (Auto) 7.3 % 01/17/23 23:30 Wright % (Auto) 4.1 % 01/17/23 23:30 Eos % (Auto) 0.1 % 01/17/23 23: Baso % (Auto) 0.6 % 01/17/23 23:30 Neut # (Auto) 25.93 10^3/uL (1.8-7.7) H 01/17/23 23:30 Lymph # (Auto) 2.2 10^3/uL (0.8-4.8) 01/17/23 23:30 Wright # (Auto) 1.2 10^3/uL (0.2-0.9) H 01/17/23 23:30 Eos # (Auto) 0.0 10^3/uL (0.0-0.8) 01/17/23 23:30 Baso # (Auto) 0.2 10^3/uL (0.0-0.1) H 01/17/23 23:30 Nucleated RBC % (auto) 0 % 01/17/23 23:30 Nucleated RBCs # 0.0 /100WBC 01/17/23 23:30 Specimen Type Arterial 01/18/23 00:31 Sample Site Radial, left 01/18/23 00:31 ABG pH 7.12 (7.35-7.45) L* 01/18/23 00:31 ABG pCO2 18.4 mmHg (35-45) L* 01/18/23 00:31 ABG pO2 123.0 mmHg (80.0-100.0) H 01/18/23 00:31 ABG HCO3 6.0 mmol/L (22-26) L 01/18/23 00:31 ABG Base Excess -21.1 mmol/L (-2.0-2.0) L 01/18/23 00:31 Terry Test Pos 01/18/23 00:31 Hematocrit 53.2 % (42-52) H 01/18/23 00:31 O2 Delivery Device None 01/18/23 00:31 [employer] ID [email or web address] 01/18/23 00:31 Sodium 132 mmol/L (136-145) L 01/17/23 23:30 Potassium 6.1 mmol/L (3.5-5.1) H 01/17/23 23:30 Chloride 92 mmol/L (98-107) L 01/17/23 23:30 Carbon Dioxide 9 mmol/L (22-29) L 01/17/23 23:30 Anion Gap 37.1 (5-19) H 01/17/23 23:30 BUN 17 mg/dL (6-20) 01/17/23 23:30 Creatinine 1.2 mg/dL (0.7-1.2) 01/17/23 23:30 GFR Calculation 64.6 mL/min (90-130) L 01/17/23 23:30 Glucose 363 mg/dL (65-115) H 01/17/23 23:30 POC Glucose 487 mg/dL (70-110) H 01/18/23 01:08 Calculated Osmolality 290 mOsm/kg (285-295) 01/17/23 23:30 Lactic Acid 3.8 mmol/L (0.5-2.2) H 01/17/23 23: Calcium 8.5 mg/dL (8.5-10.5) 01/17/23 23: Total Bilirubin 1.3 mg/dL (0.15-1.2) H 01/17/23 23:30 AST 14 U/L (0-40) 01/17/23 23: ALT 16 U/L (0-41) 01/17/23: Alkaline Phosphatase 154 U/L (40-130) H 01/17/23 23:30 Total Protein 7.2 g/dL (6.6-8.7) 01/17/23 23: Albumin 4.2 g/dL (3.5-5.2) 01/17/23 23: Globulin 3.0 g/dL (1.3-4.6) 01/17/23 23:30 Lipase 9 U/L (13-60) L 01/17/23 23:30 Urine Color Colorless (Yellow) 01/17/23 23: Urine Appearance Clear (CLEAR) 01/17/23 23:30 Urine pH 5 (5-7) 01/17/23 23:30 Ur Specific [place] 1.025 (1.005-1.030) 01/17/23 23: Urine Protein Neg (Negative) 01/17/23 23: Urine Glucose (UA) 4+ (Normal) H 01/17/23 23:30 Urine Ketones 3+ (Negative) H 01/17/23 23:30 Urine Blood Neg (Negative) 01/17/23 23: Urine Nitrate Negative (Negative) 01/17/23: Urine Bilirubin Neg (Negative) 01/17/23 23: Urine Urobilinogen Norm mg/dL (Negative) 01/17/23 23:30 Ur Leukocyte Esterase Negative (Negative) 01/17/23 23: Serum Ketones Negative (Negative) 01/17/23 23: Critical Care Time Critical Care Time: Critical Care Time: Yes Total Critical Care Time: 35 Attestation: Due to a high probability of clinically significant, possibly life threatening deterioration, the patient required my highest level of attention and preparedness to intervene emergently and I personally spent this critical care time directly and personally managing the patient. This critical care time included obtaining a history; examining the patient; pulse oximetry; ordering and review of laboratory and imaging studies; arranging urgent treatment with development of a management plan; evaluation of patient's response to treatment; frequent reassessment; and, discussions with other providers as applicable. It was exclusive of separately billable procedures. Primary system involved is metabolic Discharge Plan Discharge Patient Disposition: Admitted As Inpatient Admit Provider: Lorenzo Goodrich Clinical Impression: DKA (diabetic ketoacidosis) Condition: Stable Sign Out Sign Out Data: Patient Sign Out occurred on 01/18/23 at 00:37. Patient's care was discussed, and care was transferred from to Blake Walton MD. Coding Level of Care Code ED Hi Teacher for Rell Velasco
[2023-01-17 23:28] VITALS: BP 126/71; PULSE 114; RESP 16; TEMP 36.6; O2SAT 98; BMI 25.0
[2023-01-17 23:34] LABS: Basophils # 0.2 10^3/uL (0.0-0.1); Basophils % 0.6 %; Eosinophils % 0.1 %; Hematocrit 48.3 % (42.0-52.0); Hemoglobin 15.7 g/dL (11.7-16.6); Lymphocytes # 2.2 10^3/uL (0.8-4.8); Lymphocytes % 7.3 %; Mean Corpuscular HGB Conc 32.5 g/dL (30.0-36.0); Mean Corpuscular Hemoglobin 30.8 pg (28.0-34.0); Mean Corpuscular Volume 94.9 fl (80-94); Mean Platelet Volume 9.9 fL (7.4-10.4); Monocytes # 1.2 10^3/uL (0.2-0.9); Monocytes % 4.1 %; Neutrophils # 25.93 10^3/uL (1.8-7.7); Neutrophils % 86.8 %; Nucleated Red Blood Cells % 0 %; Platelet Count 379 10^3/cmm (130-400); Red Blood Count 5.09 10^6/uL (4.1-5.3); Red Cell Distribution Width 12.9 % (12.1-15.1); White Blood Count 29.9 10^3/uL (4.0-10.0)
[2023-01-17 23:35] LABS: Glucose Point of Care 352 mg/dL (70-110)
[2023-01-17 23:36] VITALS: BP 141/78; PULSE 114; RESP 16; O2SAT 98
[2023-01-17 23:38] LABS: Add Urine Microscopic? NO; Charge for UA Resulting for Rev
[2023-01-17 23:46] LABS: Specific Gravity, Urine 1.025 (1.005-1.030); Urine Appearance Clear (CLEAR); Urine Color Colorless (Yellow); pH Urine 5 (5-7)
[2023-01-17 23:47] LABS: Bilirubin Urine Neg (Negative); Blood Urine Neg (Negative); Glucose Urine UA 4+ (Normal); Ketones Urine 3+ (Negative); Leukocyte Esterase Urine Negative (Negative); Nitrate Urine Negative (Negative); Protein Urine Neg (Negative); Urobilinogen Urine Norm (Negative)
[2023-01-17 23:50] VITALS: RESP 16; O2SAT 100
[2023-01-17] MEDS: morphine 4 mg/mL SDV 1 mL IVP (23:50)
[2023-01-17 23:57] LABS: Ketone (Acetest) Serum Negative (Negative)
[2023-01-18] VITALS (20 sets, daily range): BP systolic 107–142; BP diastolic 61–83; PULSE 79–129; RESP 13–22; TEMP 36.6–37.1; O2SAT 98–100; BMI 23.1
[2023-01-18 00:01] LABS: Alanine Aminotransferase 16 U/L (0-41); Albumin Level 4.2 g/dL (3.5-5.2); Alkaline Phosphatase 154 U/L (40-130); Anion Gap 37.1 (5-19); Aspartate Amino Transferase 14 U/L (0-40); Blood Urea Nitrogen 17 mg/dL (6-20); Calcium 8.5 mg/dL (8.5-10.5); Chloride 92 mmol/L (98-107); Glomerular Filtration Rate 64.6 mL/min (90-130); Glucose 363 mg/dL (65-115); Lipase 9 U/L (13-60); Osmolality Calculated 290 mOsm/kg (285-295); Potassium 6.1 mmol/L (3.5-5.1); Sodium 132 mmol/L (136-145); Total Bilirubin 1.3 mg/dL (0.15-1.2); Total Protein 7.2 g/dL (6.6-8.7)
[2023-01-18 00:19] LABS: Carbon Dioxide 9 mmol/L (22-29)
[2023-01-18 00:41] LABS: Arterial Blood Gas Hematocrit 53.2 % (42-52); Base Excess ABG -21.1 mmol/L (-2.0-2.0); Blood Gas Allen Test Pos; Blood Gas Sample Type Arterial
[2023-01-18 00:43] LABS: Blood Gas Sample Site Radial, left
--- NOTE | 2023-01-18 00:47 | PC.NURSE ---
Pt was given 2L NS prior to arrival by EMS. Md stated to hold IV insulin secondary to ordering Insulin gtt. IV insulin held. 3rd L of NS started, per .
[2023-01-18] MEDS: sodium chloride 0.9% 1,000 ML 999 ML IV (00:54)
--- NOTE | 2023-01-18 01:02 | CTR_ITS ---
PROCEDURE INFORMATION: Exam: CT Abdomen And Pelvis With Contrast Exam date and time: 01/18/2023 1:13 AM Age: 47 years old Clinical indication: Pain and abnormal findings; Abnormal lab test; Elevated wbc; Nausea and vomiting; Abdominal pain; Generalized; Prior surgery; Surgery type: Hernia repair. Patient HX: Diffuse abd pain with n/v. Wbc of 30k. History of type 1 diabetes. ; Additional info: Abd pain, n/v TECHNIQUE: Imaging protocol: Computed tomography of the abdomen and pelvis with contrast. Radiation optimization: All CT scans at this facility use at least one of these dose optimization techniques: automated exposure control; mA and/or kV adjustment per patient size (includes targeted exams where dose is matched to clinical indication); or iterative reconstruction. Contrast material: OMNI 350; Contrast volume: 75 ml; Contrast route: INTRAVENOUS (IV); REPORTING DATA: Count of CT and Cardiac NM exams in prior 12 months: This patient has received 0 known CTs and 0 known cardiac nuclear medicine studies in the 12 months prior to the current study. COMPARISON: US scrotum [id number] 07/02/2021 12:17 PM RADIATION DOSE METRICS: Total DLP (mGy-cm): 426.87 FINDINGS: Lungs: The visualized portions of the lung bases are normal. Liver: Mild fatty infiltration of the liver. No mass. Gallbladder and bile ducts: No calcified stones. No ductal dilation. Pancreas: Normal contour and enhancement. No ductal dilation. Spleen: Normal enhancement. No splenomegaly. Adrenal glands: Normal contour. No mass. Kidneys and ureters: Normal enhancement. No mass. No hydronephrosis. Stomach and bowel: The non-contrast opacified stomach is not well distended with relative gastric fold prominence. Assessment is limited. Small hiatal hernia is seen. The noncontrast opacified small bowel loops appear unremarkable. The noncontrast opacified loops of colon show mild sigmoid colonic diverticulosis, without CT evidence of diverticulitis. Her poor distension of the ascending colon, sigmoid colon and rectum is seen, which limits assessment. Mild gas and fecal material is seen in the ascending colon, transverse colon and descending colon. The lack of orally administered contrast material limits assessment. Appendix: No CT evidence of appendicitis. Intraperitoneal space: No abdominal ascites. No free air. Some benign phleboliths seen in the pelvis. Vasculature: No abdominal aortic aneurysm. Inferior vena cava and portal vein appear unremarkable. Lymph nodes: No enlarged lymph nodes. Urinary bladder: No bladder wall thickening or debris. Reproductive: Unremarkable as visualized. Bones/joints: No acute osseous abnormality seen. Soft tissues: Unremarkable. CT/CT abdomen pelvis w con* [id number] IMPRESSION: 1. No acute abnormality seen on the abdomen and pelvis CT. 2. Small hiatal hernia.
[2023-01-18 01:04] LABS: Lactic Sepsis W/Reflex 3.8 mmol/L (0.5-2.2)
[2023-01-18] MEDS: iohexol 350 mg/mL 500 mL Btl (per mL) IV (01:16)
--- NOTE | 2023-01-18 01:29 | P.HP_ITS ---
Providers/Chief Complaint Admitting Physician: Lorenzo Goodrich Chief Complaint: High blood glucose History of Present Illness Pleasant 47-year-old gentleman with history of DM1, history of DKA x4, has had several days of nausea, vomiting and diarrhea, yesterday was assessed in [place] diagnosed with gastroenteritis, discharged home with antibiotics among other medications. However, condition has worsened, he came here for r eevaluation. In ER he is ill-appearing, he is found to have sinus tachycardia 114-120, leukocytosis 29.9. Afebrile. Nauseated. ABG 7.12/18 point 4/123/6. Sodium 132, potassium 6.1, chloride 92, bicarb 9, anion gap 37.1. BUN 17, creatinine 1.2. Glucose 363. Lactic acid 3.8. T. bili 1.3. Alk phos 154. Lipase 9. Unremarkable UA apart from positive for 3+ ketones. Serum ketones negative. CT abdomen pelvis pending. He received fluid bolus 1000 mL NS, is started on insulin drip. He otherwise normally follows with Dr. Burgess. Is reportedly been set up for Dexcom monitor. Currently makes his own decisions, in case this were not possible names his mother as surrogate decision-maker. Review of Systems Const: Denies: fever(s), chills, body aches or malaise Eyes: Denies: change in vision, eye discomfort or eye redness ENMT: Denies: throat pain, oral sores or ear or mastoid pain Card: Denies: chest pain, edema, pre-syncope or dyspnea on exertion Resp: Denies: dyspnea, productive cough, change in phlegm color or hemoptysis GI: Reports: nausea, vomiting and diarrhea; Denies: abdominal pain, constipation, hematochezia or melena : Denies: flank pain, difficulty urinating, urinary frequency or hematuria Musc: Denies: back pain, joint swelling or joint redness Skin/Breast: Denies: rash or new lesions Neuro: Reports: confusion (He feels slightly confused, states difficult for him to obtain collateral i); Denies: headache(s), numbness in extremities, weakness in extremities, dizziness or seizure-like activity Endo: Reports: polyuria and polydipsia Paco/Lymph: Denies: easy bleeding or tender lymph nodes All/Imm: Denies: urticaria or tongue swelling Medications/Allergies Home Medications Medication Instructions Recorded Confirmed Last Taken Type blood-glucose meter (Blood Glucose #1 ea 08/15/20 12/31/22 Unknown Rx Monitoring kit) acetaminophen 500 mg tablet 500 mg PO Q6H PRN Pain 03/05/22 12/31/22 Unknown History chlorpheniramine 2 1 tab PO BID PRN Flu Symptoms 03/05/22 12/31/22 Unknown History mg-phenylephrine 5 mg-acetaminophen 325 mg tablet fluticasone propionate 50 2 spray intranasal DAILY PRN 03/05/22 12/31/22 Unknown History mcg/actuation nasal Allergy Symptoms spray,suspension ibuprofen 200 mg tablet 200 mg PO Q6H PRN Pain 03/05/22 12/31/22 Unknown History ondansetron HCl 4 mg tablet 4 mg PO Q8H PRN Nausea And Vomiting 03/05/22 12/31/22 Unknown History sildenafil 100 mg tablet (Viagra) 100 mg PO DAILY PRN Erectile 03/05/22 12/31/22 Unknown History Dysfunction pen needle, diabetic 32 gauge x See Rx Instructions .Route 05/25/22 12/31/22 Unknown Rx (Pentips) .COMPLEX #600 ea loratadine 10 mg tablet See Rx Instructions .Route 06/09/22 12/31/22 Unknown Rx .COMPLEX #90 tabs blood sugar diagnostic (OneTouch #100 ea 06/24/22 12/31/22 Unknown Rx Ultra Test strips) insulin aspart U-100 100 unit/mL See Rx Instructions .Route 11/10/22 12/31/22 Unknown Rx (3 mL) subcutaneous pen (Novolog .COMPLEX #45 mL FlexPen U-100 Insulin aspart) insulin glargine 100 unit/mL (3 40 unit (0.4 mL) SUBCUT DAILY #15 11/10/22 12/31/22 Unknown Rx mL) subcutaneous pen (Lantus mL Solostar U-100 Insulin) atorvastatin 40 mg tablet 40 mg PO DAILY #90 tabs 12/31/22 12/31/22 Unknown Rx blood-glucose meter,continuous #1 ea 12/31/22 12/31/22 Unknown Rx (Dexcom G6 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) blood-glucose sensor (Dexcom G6 #9 ea 12/31/22 12/31/22 Unknown Rx Sensor device) blood-glucose transmitter (Dexcom #1 ea 12/31/22 12/31/22 Unknown Rx G6 Transmitter device) Allergies Allergy/AdvReac Type Severity Reaction Status Date / Time No Known Allergies Allergy Verified 01/17/23 23:31 PFSH Acute PFSH: Medical History (Updated 01/18/23 @ 01:34 by Lorenzo Goodrich MD) DKA, type 1 DM type 1 (diabetes mellitus, type 1) GERD (gastroesophageal reflux disease) Hyperlipidemia Surgical History Hx of hernia repair Family History Father Cancer Cirrhosis of liver Mother Hyperlipidemia Social History (Updated 01/18/23 @ 01:13 by Lorenzo Goodrich MD) Smoking and tobacco status: current every day smoker Substance/Drug Use: current Substance/Drug use type: Marijuana Other substance/drug use details: Occasional Household members: other Details: Daughter Vitals/I&O/Wt Last Vital Signs Temp 97.8 F 01/17/23 23:28 Pulse 120 H 01/18/23 00:35 Resp 16 01/18/23 00:35 BP 136/62 01/18/23 00:35 Pulse Ox 100 01/18/23 00:35 O2 Del Method 01/18/23 00:35 Weight last 48 hrs Weight 83.915 kg Physical Exam Const: COMMON NORMALS: patient oriented x3 and alert GENERAL APPEARANCE: cooperative ORIENTATION/CONSCIOUSNESS: Yes awake HENMT: COMMON NORMALS: oropharynx normal Neck/C-Spine: COMMON NORMALS: no JVD Resp: COMMON NORMALS: normal respiratory effort and clear to auscultation bilaterally AUSCULTATION: clear to auscultation bilaterally Cardio: COMMON NORMALS: no JVD, regular rhythm, S1 normal heart sound present, S2 normal heart sound present and No murmurs present (Cardio) RHYTHM: regular rhythm HEART SOUNDS: S1 normal heart sound present and S2 normal heart sound present GI: COMMON NORMALS: Normal to inspection, nondistended, normoactive bowel sounds present, Soft to palpation and non-tender PALPATION: Yes Soft to palpation Extremity: COMMON NORMALS: no joint enlargement and no pedal edema Neuro: COMMON NORMALS: patient oriented x3 and moves all extremities SENSORIUM/ORIENTATION: Yes alert Skin: COMMON NORMALS: no rashes or lesions noted GENERAL SKIN EXAM: no rashes or lesions noted Data 01/17/23 23:30 01/17/23 23:30 Micro: Microbiology 01/18/23 00:58 Blood Culture - Preliminary Blood SPECIMEN COLLECTED 01/18/23 00:54 Blood Culture - Preliminary Blood SPECIMEN COLLECTED A&P Assessment and plan (1) DKA (diabetic ketoacidosis): Continue insulin drip, requesting reassessment chemistry, electrolytes including magnesium, phosphorus. Noted corrected sodium is 136-138. Continue fluid resuscitation with 0.45 NS at 250 mL/h. Target glucose 150-200. Continue close glucose monitoring with Accu-Cheks. Monitor intake and output. Weights. Continue treatment in ICU. For now n.p.o. with ice chips. Once DKA improving, nausea and, and if nothing concerning on CT may resume oral intake. DVT prophylaxis with heparin, SCD. PPI. Discussed with ER providers. ER documentation reviewed. (2) Nausea vomiting and diarrhea: CT abdomen pelvis is obtained and pending. Please follow-up. We will additionally assess COVID-19 PCR. (3) Leukocytosis: Suspect secondary to dehydration, stress. No obvious infection, however, CT abdomen pelvis pending as above. We will additionally assess COVID PCR. (4) DM type 1 (diabetes mellitus, type 1): On subcutaneous insulin. Follows with endocrinology Dr. Burgess. States he is in the process of arrangements for a Dexcom monitor. Plan Mild ILIR: Creatinine 1.2. Fluid resuscitation as above. Follow-up renal function. Monitor I&O. Mild T. bili elevation, mild alk phos elevation: Suspected cholestasis secondary to dehydration, DKA. Follow-up CMP requested. Please review and reconcile his medications once confirmed. Attestations Medical Necessity Statement*: Admission of over 2 midnights anticipated for as sessment management of DKA. Coding Level of Care Code Critical Care >/= 30 minutes Critical care time (in minutes): 40 The high probability of a clinically significant, sudden or life threatening d eterioration, as referenced in this documentation, required my full and direct attention, intervention and personal management. The critical care time shown is in addition to time spent performing any reported separately billable procedures and includes the following: [x] Data and vital sign review and interpretation [x ] Patient assessment, examination and intervention [x] Medication orders and management [x] Patient/Family updates as able [x] Care Coordination and Documentation. Diagnoses DKA (diabetic ketoacidosis) E11.10 Nausea vomiting and diarrhea R11.2; R19.7 Leukocytosis D72.829 DM type 1 (diabetes mellitus, type 1) E10.9
[2023-01-18] MEDS: insulin regular-human 250 UNIT in sodium chloride 0.9% 250 ML 12.81 UNIT IV (01:30)
[2023-01-18 01:57] LABS: Glucose Point of Care 487 mg/dL (70-110)
[2023-01-18] MEDS: sodium chloride 0.45% 1,000 ML 250 ML IV ×2 (02:05→05:59)
[2023-01-18 02:31] LABS: Glucose Point of Care 398 mg/dL (70-110)
--- NOTE | 2023-01-18 03:07 | PC.NURSE ---
Pt arrived to ICU 1 from ER, via stretcher, @0148. Continuous monitoring initiated. Pt denies skin issues but refused a full body skin assessment. Pt refused a nasal swab for COVID and denies exposure to COVID in the last 14 days, testing positive, and unexplained cough/fever. Refused SCDs. Refused Heparin/Protonix. Provided education on the purpose of these doctors orders. Pt stated understanding and continued refusal. Pt refused frequent BP checks but was agreeable to Q1HR BP checks. Pt stated 4/10 pain that is generalized, he believes this pain will resolve when his DKA resolves and does not want to do anything for his pain @this time. Insulin running on arrival to the unit, see paper chart for IV Insulin Flow Sheet .
[2023-01-18 03:16] LABS: Glucose Point of Care 311 mg/dL (70-110)
[2023-01-18 03:28] LABS: Basophils # 0.2 10^3/uL (0.0-0.1); Basophils % 0.5 %; Hematocrit 47.1 % (42.0-52.0); Hemoglobin 15.3 g/dL (11.7-16.6); Lymphocytes # 1.8 10^3/uL (0.8-4.8); Lymphocytes % 5.7 %; Mean Corpuscular HGB Conc 32.5 g/dL (30.0-36.0); Mean Corpuscular Hemoglobin 30.9 pg (28.0-34.0); Mean Corpuscular Volume 95.2 fl (80-94); Mean Platelet Volume 10.5 fL (7.4-10.4); Monocytes # 1.4 10^3/uL (0.2-0.9); Monocytes % 4.5 %; Neutrophils % 87.9 %; Nucleated Red Blood Cells % 0 %; Platelet Count 393 10^3/cmm (130-400); Red Blood Count 4.95 10^6/uL (4.1-5.3); Red Cell Distribution Width 12.9 % (12.1-15.1)
[2023-01-18 03:42] LABS: White Blood Count 31.9 10^3/uL (4.0-10.0)
[2023-01-18 03:45] LABS: Alanine Aminotransferase 17 U/L (0-41); Albumin Level 4.3 g/dL (3.5-5.2); Alkaline Phosphatase 162 U/L (40-130); Aspartate Amino Transferase 16 U/L (0-40); Blood Urea Nitrogen 19 mg/dL (6-20); Calcium 8.3 mg/dL (8.5-10.5); Chloride 96 mmol/L (98-107); Globulin 2.9 g/dL (1.3-4.6); Glomerular Filtration Rate 58.9 mL/min (90-130); Glucose 332 mg/dL (65-115); Magnesium 2.2 mg/dL (1.7-2.3); Osmolality Calculated 297 mOsm/kg (285-295); Phosphorus 4.5 mg/dL (2.5-4.5); Sodium 136 mmol/L (136-145); Total Protein 7.2 g/dL (6.6-8.7)
[2023-01-18 04:02] LABS: Glucose Point of Care 244 mg/dL (70-110)
[2023-01-18 04:28] LABS: Anion Gap 37.1 (5-19); Carbon Dioxide 8 mmol/L (22-29); Potassium 5.1 mmol/L (3.5-5.1)
[2023-01-18 05:15] LABS: Glucose Point of Care 216 mg/dL (70-110)
[2023-01-18 06:07] LABS: Glucose Point of Care 185 mg/dL (70-110)
[2023-01-18 07:10] LABS: Glucose Point of Care 130 mg/dL (70-110)
[2023-01-18 08:05] LABS: Glucose Point of Care 110 mg/dL (70-110)
[2023-01-18] MEDS: dextrose 5%-ns + KCl 20 20 MEQ/1,000 ML BAG 150 MEQ IV ×3 (08:08→21:20)
[2023-01-18 08:54] LABS: Anion Gap 24.6 (5-19); Blood Urea Nitrogen 16 mg/dL (6-20); Calcium 8.1 mg/dL (8.5-10.5); Carbon Dioxide 13 mmol/L (22-29); Chloride 103 mmol/L (98-107); Glomerular Filtration Rate 71.4 mL/min (90-130); Glucose 124 mg/dL (65-115); Osmolality Calculated 285 mOsm/kg (285-295); Potassium 4.6 mmol/L (3.5-5.1); Sodium 136 mmol/L (136-145)
[2023-01-18 09:10] LABS: Glucose Point of Care 131 mg/dL (70-110)
[2023-01-18] MEDS: ondansetron 2 mg/ML SDV 2 mL 4 MG IVP ×4 (09:15→22:18)
[2023-01-18 10:05] LABS: Glucose Point of Care 156 mg/dL (70-110)
[2023-01-18] MEDS: pantoprazole DR 40 mg Tablet PO (10:37)
--- NOTE | 2023-01-18 10:41 | PC.NURSE ---
1040 Complaint of nausea still, already gave Zofran. First dose of Protonix not given, so gave now.
[2023-01-18 11:11] LABS: Glucose Point of Care 185 mg/dL (70-110)
[2023-01-18 12:00] LABS: Glucose Point of Care 165 mg/dL (70-110)
[2023-01-18 13:02] LABS: Glucose Point of Care 205 mg/dL (70-110)
--- NOTE | 2023-01-18 13:44 | PC.NURSE ---
0700 Bedside report done with Sherly, but not charted.
--- NOTE | 2023-01-18 14:09 | PC.NURSE ---
1400 Patient refused his Heparin injection after explanation of what the importance of it to prevent blood clots. He said he has had it before and he don't need it, and shows me he will exercise his legs by sticking them up in the air and pumping them, but refuses to take the heparin injection.
[2023-01-18 14:11] LABS: Glucose Point of Care 190 mg/dL (70-110)
--- NOTE | 2023-01-18 14:26 | P.PN_ITS ---
Subjective Subjective: patient was seen and examined this morning he was complaining of nausea.currently on insulin drip, his other vitals and labs have been reviewed. Medications: Medication Review Details: Generic Name Dose Route Start Last Admin Trade Name [place] PRN Reason Stop Dose Admin Heparin Sodium (Po rcine) 5,000 unit 01/18/23 01:58 01/18/23 13:58 Heparin 5,000 Un it/Ml Inj 1 Ml SUBCUT Not Given Q12H SISI Insulin Human Regu lar 250 unit 252.5 mls @ 0 mls /hr 01/18/23 00:45 01/18/23 08:00 / Sodium Chlorid e IV 1.5 mls/hr .Q0M SISI 1.5 mls/hr Titration Protocol Per Protocol Potassium Chloride /Dextrose/Sod Cl 20 meq in 1,000 m ls @ 150 mls/hr 01/18/23 08:30 01/18/23 08:08 Dextrose 5%-Ns + Kcl 20 IV 150 mls/hr .Q6H40M SISI Administration Ondansetron HCl 4 mg 01/18/23 09:11 01/18/23 14:05 Ondansetron 2 Mg /Ml Sdv 2 Ml IVP 4 mg Q4H PRN Administration NAUSEA AND VOMITI NG Pantoprazole Sodiu m 40 mg 01/18/23 01:58 01/18/23 10:[address] 40 Mg Tablet PO 40 mg DAILY SISI Administration Vitals/I&O/Wt Last Vital Signs Temp 98.7 F 01/18/23 02:00 Pulse 102 H 01/18/23 14:00 Resp 18 01/18/23 12:00 BP 127/74 01/18/23 12:00 Pulse Ox 100 01/18/23 12:00 O2 Del Method 01/18/23 02:07 01/17/23 01/18/23 01/18/23 22:59 06:59 14:59 Intake Total 2024.405 / 2024.405 971.892 / 971.892 Output Total 800 / 800 1250 / 1250 Balance 1224.405 / 1224.405 -278.108 / -278.108 Weight last 48 hrs Weight 77.156 kg Weight 77.474 kg Weight 83.915 kg Physical Exam Const: COMMON NORMALS: patient oriented x3 HENMT: COMMON NORMALS: normocephalic and atraumatic HEAD & SCALP: normocephalic and atraumatic Resp: COMMON NORMALS: normal respiratory effort, No retractions, No use of accessory muscles and clear to auscultation bilaterally EFFORT & INSPECTION: Yes symmetric chest movement AUSCULTATION: clear to auscultation bilaterally Cardio: COMMON NORMALS: regular rate, regular rhythm, S1 normal heart sound present, S2 normal heart sound present, No gallops present (Cardio), No murmurs present (Cardio), No rub (Cardio) and Peripheral pulses 2+ throughout RATE: regular rate RHYTHM: regular rhythm HEART SOUNDS: S1 normal heart sound present and S2 normal heart sound present PERIPHERAL PULSES: Peripheral pulses 2+ throughout GI: COMMON NORMALS: Normal to inspection, nondistended, normoactive bowel sounds present, Soft to palpation, non-tender, No hepatosplenomegaly present and no masses AUSCULTATION: Yes normoactive bowel sounds PALPATION: Yes Soft to palpation and Yes No hepatosplenomegaly present RECTAL EXAM: Yes deferred Extremity: COMMON NORMALS: no clubbing, cyanosis or edema and no pedal edema Neuro: COMMON NORMALS: patient oriented x3 Data 01/18/23 02:36 01/18/23 12:37 Micro: Microbiology 01/18/23 00:58 Blood Culture - Preliminary Blood SPECIMEN COLLECTED 01/18/23 00:54 Blood Culture - Preliminary Blood SPECIMEN COLLECTED A&P Assessment and plan (1) DKA (diabetic ketoacidosis): Currently patient is being managed as per DKA Protocol , currently npo, on i nsulin drip, bmp is being monitored every 4hrs, fsg every hour, electrolytes are being monitored.I.V hydration as per protocol for DKA.Target glucose 150-200 (2) Nausea vomiting and diarrhea: CT abdomen pelvis : No acute findings, likely related to DKA. (3) Leukocytosis: CT abdomen pelvis : No acute findings. Blood cultures : Possibly related to dehydration, stress demarginilsation. Monitor CBC for now.Will hold off on abxs. (4) DM type 1 (diabetes mellitus, type 1): On subcutaneous insulin. Follows with endocrinology Dr. Burgess. States he is in the process of arrangements for a Dexcom monitor. (5) ILIR (acute kidney injury): Likely pre renal ILIR 2/2 dehydration Monitor BMP Avoid nephrotoxics Monitor I/O Chrating (6) Metabolic acidosis: Increased anion gap metabolic acidosis 2/2 DKA. If am hopeful that with insulin drip and optimum i.v hydration the metabolic acidosis will improve.I will stay away from bicarab. Monitor BMP for now. Plan Mild ILIR: Creatinine 1.2. Fluid resuscitation as above. Follow-up renal function. Monitor I&O. Mild T. bili elevation, mild alk phos elevation: Suspected cholestasis secondary to dehydration, DKA. Follow-up CMP requested. Attestations Medical Necessity Statement*: needs to be in hospital for the management of DKA Critical Care Time: The high probability of a clinically significant, sudden or life threatening deterioration of the patient's [] system(s) required my full and direct attention, intervention and personal management. The critical care time is as shown. This time is in addition to time spent performing any reported procedures but includes the following: [x] Data and vital sign review and interpretation [x] Patient assessment, examination and intervention [x] Documentation [x] Medication orders and management Critical Care Time (min): 35 Coding Level of Care Code Critical Care >/= 30 minutes Diagnoses DKA (diabetic ketoacidosis) E11.10 Nausea vomiting and diarrhea R11.2; R19.7 Leukocytosis D72.829 DM type 1 (diabetes mellitus, type 1) E10.9 ILIR (acute kidney injury) N17.9 Metabolic acidosis E87.20
[2023-01-18 14:46] LABS: Anion Gap 21.4 (5-19); Blood Urea Nitrogen 13 mg/dL (6-20); Carbon Dioxide 17 mmol/L (22-29); Chloride 100 mmol/L (98-107); Glomerular Filtration Rate 90.1 mL/min (90-130); Glucose 179 mg/dL (65-115); Osmolality Calculated 283 mOsm/kg (285-295); Potassium 4.4 mmol/L (3.5-5.1); Sodium 134 mmol/L (136-145)
[2023-01-18 15:21] LABS: Glucose Point of Care 177 mg/dL (70-110)
[2023-01-18 16:09] LABS: Glucose Point of Care 156 mg/dL (70-110)
[2023-01-18 16:37] LABS: Anion Gap 21.3 (5-19); Blood Urea Nitrogen 12 mg/dL (6-20); Calcium 8.1 mg/dL (8.5-10.5); Carbon Dioxide 16 mmol/L (22-29); Chloride 102 mmol/L (98-107); Glomerular Filtration Rate 90.1 mL/min (90-130); Glucose 174 mg/dL (65-115); Osmolality Calculated 284 mOsm/kg (285-295); Potassium 4.3 mmol/L (3.5-5.1); Sodium 135 mmol/L (136-145)
[2023-01-18 17:00] LABS: Glucose Point of Care 185 mg/dL (70-110)
[2023-01-18 17:59] LABS: Glucose Point of Care 169 mg/dL (70-110)
[2023-01-18 19:12] LABS: Glucose Point of Care 147 mg/dL (70-110)
[2023-01-18 20:08] LABS: Glucose Point of Care 173 mg/dL (70-110)
[2023-01-18 20:42] LABS: Blood Urea Nitrogen 10 mg/dL (6-20); Calcium 8.1 mg/dL (8.5-10.5); Carbon Dioxide 18 mmol/L (22-29); Chloride 102 mmol/L (98-107); Glomerular Filtration Rate 90.1 mL/min (90-130); Glucose 176 mg/dL (65-115); Osmolality Calculated 287 mOsm/kg (285-295); Sodium 137 mmol/L (136-145)
[2023-01-18 20:45] LABS: Anion Gap 21.1 (5-19); Potassium 4.1 mmol/L (3.5-5.1)
[2023-01-18 21:15] LABS: Glucose Point of Care 232 mg/dL (70-110)
[2023-01-18 22:17] LABS: Glucose Point of Care 213 mg/dL (70-110)
[2023-01-18 23:09] LABS: Glucose Point of Care 192 mg/dL (70-110)
[2023-01-19] VITALS (25 sets, daily range): BP systolic 117–146; BP diastolic 62–86; PULSE 63–114; RESP 11–32; TEMP 36.7; O2SAT 96–100
[2023-01-19 00:07] LABS: Glucose Point of Care 228 mg/dL (70-110)
[2023-01-19 00:28] LABS: Anion Gap 19.2 (5-19); Blood Urea Nitrogen 9 mg/dL (6-20); Calcium 8.1 mg/dL (8.5-10.5); Carbon Dioxide 19 mmol/L (22-29); Chloride 102 mmol/L (98-107); Glomerular Filtration Rate 103.2 mL/min (90-130); Glucose 212 mg/dL (65-115); Osmolality Calculated 287 mOsm/kg (285-295); Potassium 4.2 mmol/L (3.5-5.1); Sodium 136 mmol/L (136-145)
[2023-01-19 01:25] LABS: Glucose Point of Care 230 mg/dL (70-110)
[2023-01-19 02:04] LABS: Glucose Point of Care 217 mg/dL (70-110)
[2023-01-19 03:04] LABS: Glucose Point of Care 251 mg/dL (70-110)
[2023-01-19 04:11] LABS: Glucose Point of Care 259 mg/dL (70-110)
[2023-01-19] MEDS: dextrose 5%-ns + KCl 20 20 MEQ/1,000 ML BAG 150 MEQ IV ×2 (04:18→11:08)
[2023-01-19 04:41] LABS: Basophils # 0.1 10^3/uL (0.0-0.1); Basophils % 0.4 %; Eosinophils # 0.2 10^3/uL (0.0-0.8); Eosinophils % 1.1 %; Hemoglobin 13.6 g/dL (11.7-16.6); Lymphocytes # 3.1 10^3/uL (0.8-4.8); Lymphocytes % 21.2 %; Mean Corpuscular HGB Conc 34.9 g/dL (30.0-36.0); Mean Corpuscular Hemoglobin 31.7 pg (28.0-34.0); Mean Corpuscular Volume 90.9 fl (80-94); Mean Platelet Volume 9.9 fL (7.4-10.4); Monocytes # 0.9 10^3/uL (0.2-0.9); Monocytes % 5.7 %; Neutrophils # 10.52 10^3/uL (1.8-7.7); Neutrophils % 71.1 %; Nucleated Red Blood Cells % 0 %; Platelet Count 279 10^3/cmm (130-400); Red Blood Count 4.29 10^6/uL (4.1-5.3); Red Cell Distribution Width 13.2 % (12.1-15.1); White Blood Count 14.8 10^3/uL (4.0-10.0)
[2023-01-19 04:48] LABS: Alanine Aminotransferase 14 U/L (0-41); Albumin Level 3.5 g/dL (3.5-5.2); Alkaline Phosphatase 109 U/L (40-130); Aspartate Amino Transferase 14 U/L (0-40); Blood Urea Nitrogen 8 mg/dL (6-20); Calcium 7.9 mg/dL (8.5-10.5); Carbon Dioxide 18 mmol/L (22-29); Chloride 102 mmol/L (98-107); Globulin 2.4 g/dL (1.3-4.6); Glomerular Filtration Rate 103.2 mL/min (90-130); Glucose 250 mg/dL (65-115); Magnesium 1.8 mg/dL (1.7-2.3); Osmolality Calculated 293 mOsm/kg (285-295); Sodium 138 mmol/L (136-145); Total Bilirubin 1.4 mg/dL (0.15-1.2); Total Protein 5.9 g/dL (6.6-8.7)
[2023-01-19 04:54] LABS: Anion Gap 22.4 (5-19); Potassium 4.4 mmol/L (3.5-5.1)
[2023-01-19 05:04] LABS: Glucose Point of Care 238 mg/dL (70-110)
[2023-01-19 06:15] LABS: Glucose Point of Care 213 mg/dL (70-110)
--- NOTE | 2023-01-19 06:16 | PC.NURSE ---
Addendum entered by Casi La RN 01/19/23 06:37: During this time, pt sat up on the side of the bed, HR 170, pt educated on increased HR and instructed to lay back in bed. Pt refused. Original Note: Pt became upset during hourly BG check. Pt called this RN a salazar bitch and threw the TV remote at the wall. Pt expressed concern about the hospitals management of his DKA. Education provided. Pt resistant to education. Pt continues to yell, saying you don't know what your fucking doing . Pt is refusing to let staff titrate his insulin drip @this time. Security on unit. Dr. Goodrich called. Channeler Runner on unit.
--- NOTE | 2023-01-19 07:02 | XRR_ITS ---
PROCEDURE INFORMATION: Exam: XR Chest Exam date and time: 01/19/2023 6:34 AM Age: 47 years old Clinical indication: Cough; Prior surgery; Surgery type: Hernia; Additional info: Cough, phlegm, leukocytosis, dka TECHNIQUE: Imaging protocol: Radiologic exam of the chest. Views: 1 view. COMPARISON: CT abdomen pelvis w con* [id number] 01/18/2023 1:13 AM FINDINGS: Lungs: Normal lung volumes. No interstitial or air space opacities seen. Pleural spaces: No pleural effusion. No pneumothorax. Heart/Mediastinum: Normal heart size. Normal mediastinum. Midline trachea. Bones/joints: No acute osseous abnormalities seen. XR/XR chest 1V portable [id number] IMPRESSION: No acute cardiopulmonary disease on the chest radiograph.
--- NOTE | 2023-01-19 07:07 | W.PM.EVENTAC ---
Event Note Event Note: Spoke with patient this morning. He is frustrated that his DKA has not improved yet. Questioning why he is getting sugar water. Discussed with him D5 infusion is given so that he may continue receiving insulin drip when his glucose decreased below 250. He has had slow progress, although has shown some improvement with anion gap and decreased overall since admission. However, progress has been slow leading to frustration. Reassured him. Encouraged to allow continued treatment. Discussed that his day team will be coming in here shortly as well for reassessment and he will have opportunity to further discuss with him. He does report that he was recently prescribed Augmentin on 01/17 for a number of reasons at [place]. He states that there was perhaps an intra-abdominal infection, although he denies having any imaging there. On presentation there was report of gastroenteritis. However, he also states that she has had pain in his right upper molar recently with periodontitis for which she was supposed to see a dentist but his appointment got canceled due to snowstorm. We will resume Augmentin at this time. He is additionally steady state that he has been coughing up phlegm. Will additionally assess chest x-ray. Noted leukocytosis persists although with improvement from 31.9 yesterday to 14.8. He is additionally no longer vomiting, no longer having abdominal discomfort. He is hungry. Would like to start diet. We will start him on trial of clear liquid consistent for moderate diet, if he is tolerating this may be advanced further.
[2023-01-19] MEDS: amoxicillin-clav 875-125 mg Tablet 1 TAB PO ×2 (07:35→17:34)
[2023-01-19 07:36] LABS: Glucose Point of Care 182 mg/dL (70-110)
[2023-01-19 08:31] LABS: Glucose Point of Care 165 mg/dL (70-110)
[2023-01-19 09:35] LABS: Glucose Point of Care 190 mg/dL (70-110)
[2023-01-19 10:38] LABS: Glucose Point of Care 166 mg/dL (70-110)
[2023-01-19 11:23] LABS: Alanine Aminotransferase 14 U/L (0-41); Albumin Level 3.5 g/dL (3.5-5.2); Alkaline Phosphatase 96 U/L (40-130); Aspartate Amino Transferase 14 U/L (0-40); Blood Urea Nitrogen 6 mg/dL (6-20); Calcium 8.1 mg/dL (8.5-10.5); Carbon Dioxide 21 mmol/L (22-29); Chloride 105 mmol/L (98-107); Globulin 2.3 g/dL (1.3-4.6); Glomerular Filtration Rate 103.2 mL/min (90-130); Glucose 172 mg/dL (65-115); Osmolality Calculated 292 mOsm/kg (285-295); Sodium 140 mmol/L (136-145); Total Bilirubin 1.3 mg/dL (0.15-1.2); Total Protein 5.8 g/dL (6.6-8.7)
[2023-01-19 11:39] LABS: Glucose Point of Care 187 mg/dL (70-110)
[2023-01-19 12:44] LABS: Glucose Point of Care 179 mg/dL (70-110)
[2023-01-19 13:35] LABS: Glucose Point of Care 170 mg/dL (70-110)
[2023-01-19] MEDS: insulin glargine 100 units/1 mL 20 UNIT SUBCUT (13:38)
[2023-01-19 14:48] LABS: Glucose Point of Care 307 mg/dL (70-110)
[2023-01-19 14:48] LABS: Glucose Point of Care 166 mg/dL (70-110)
[2023-01-19 15:54] LABS: Glucose Point of Care 181 mg/dL (70-110)
[2023-01-19 17:30] LABS: Glucose Point of Care 220 mg/dL (70-110)
[2023-01-19] MEDS: insulin lispro 100 unit/1 mL SUBCUT ×2 (17:34→20:39)
--- NOTE | 2023-01-19 17:53 | P.PN_ITS ---
Subjective Subjective: patient was seen and examined this morning, overall doing better, anion gap is closed. Has been transitioned to LDSSI, has been started on diabetic diet. Medications: Medication Review Details: Generic Name Dose Route Start Last Admin Trade Name Freq PRN Reason Stop Dose Admin Amoxicillin/Clavul anate Potassium 1 tab 01/19/23 07:05 01/19/23 17:34 Amoxicillin-Clav 875-125 Mg Tablet PO 1 tab BID SISI Administration Protocol Heparin Sodium (Po rcine) 5,000 unit 01/18/23 01:58 01/19/23 13:37 Heparin 5,000 Un it/Ml Inj 1 Ml SUBCUT Not Given Q12H SISI Insulin Human Lisp ro 0 unit 01/19/23 18:00 01/19/23 17:34 Insulin Lispro 1 00 Unit/1 Ml SUBCUT 4 unit WM&BEDTIME SISI Administration Protocol Ondansetron HCl 4 mg 01/18/23 09:11 01/18/23 22:18 Ondansetron 2 Mg /Ml Sdv 2 Ml IVP 4 mg Q4H PRN Administration NAUSEA AND VOMITI NG Pantoprazole Sodiu m 40 mg 01/18/23 01:58 01/18/23 10:[address] 40 Mg Tablet PO 40 mg DAILY SISI Administration Vitals/I&O/Wt Last Vital Signs Temp 98.7 F 01/18/23 02:00 Pulse 91 01/19/23 16:00 Resp 18 01/19/23 16:00 BP 122/75 01/19/23 14:00 Pulse Ox 98 01/19/23 16:00 O2 Del Method 01/18/23 02:07 01/19/23 01/19/23 01/19/23 06:59 14:59 22:59 Intake Total 1013.6 / 3985.762 1905.307 / 3412.906 3260.59 / 2957.897 Output Total 675 / 3025 725 / 725 675 / 1400 Balance 338.6 / 522.346 0916.307 / 1180.307 377.59 / 1557.897 Weight last 48 hrs Weight 77.156 kg Weight 77.474 kg Weight 83.915 kg Physical Exam Const: COMMON NORMALS: patient oriented x3 HENMT: COMMON NORMALS: normocephalic and atraumatic HEAD & SCALP: normocephalic and atraumatic Resp: COMMON NORMALS: normal respiratory effort, No retractions, No use of accessory muscles and clear to auscultation bilaterally EFFORT & INSPECTION: Yes symmetric chest movement AUSCULTATION: clear to auscultation bilaterally Cardio: COMMON NORMALS: regular rate, regular rhythm, S1 normal heart sound present, S2 normal heart sound present, No gallops present (Cardio), No murmurs present (Cardio), No rub (Cardio) and Peripheral pulses 2+ throughout RATE: regular rate RHYTHM: regular rhythm HEART SOUNDS: S1 normal heart sound present and S2 normal heart sound present PERIPHERAL PULSES: Peripheral pulses 2+ throughout GI: COMMON NORMALS: Normal to inspection, nondistended, normoactive bowel sounds present, Soft to palpation, non-tender, No hepatosplenomegaly present and no masses AUSCULTATION: Yes normoactive bowel sounds PALPATION: Yes Soft to palpation and Yes No hepatosplenomegaly present RECTAL EXAM: Yes deferred Extremity: COMMON NORMALS: no clubbing, cyanosis or edema and no pedal edema Neuro: COMMON NORMALS: patient oriented x3 Data 01/19/23 04:13 01/19/23 10:55 Micro: Microbiology 01/18/23 00:58 Blood Culture - Preliminary Blood NEGATIVE TO DATE 01/18/23 00:54 Blood Culture - Preliminary Blood NEGATIVE TO DATE A&P Assessment and plan (1) DKA (diabetic ketoacidosis): Currently patient is being managed as per DKA Protocol , currently npo, on insulin drip, bmp is being monitored every 4hrs, fsg every hour, electrolytes are being monitored.I.V hydration as per protocol for DKA.Target glucose 150-200 (2) Nausea vomiting and diarrhea: CT abdomen pelvis : No acute findings, likely related to DKA. (3) Leukocytosis: CT abdomen pelvis : No acute findings. Blood cultures : Possibly related to dehydration, stress demarginilsation. Monitor CBC for now.Will hold off on abxs. (4) DM type 1 (diabetes mellitus, type 1): On subcutaneous insulin. Follows with endocrinology Dr. Burgess. States he is in the process of arrangements for a Dexcom monitor. (5) ILIR (acute kidney injury): Likely pre renal ILIR 2/2 dehydration Monitor BMP Avoid nephrotoxics Monitor I/O Chrating (6) Metabolic acidosis: Increased anion gap metabolic acidosis 2/2 DKA. If am hopeful that with insulin drip and optimum i.v hydration the metabolic acidosis will improve.I will stay away from bicarab. Monitor BMP for now. Plan Recent teeth infection: Has been resumed on Augmentin. Mild ILIR: Creatinine 1.2. Fluid resuscitation as above. Follow-up renal function. Monitor I&O. Mild T. bili elevation, mild alk phos elevation: Suspected cholestasis secondary to dehydration, DKA. Follow-up CMP requested. Attestations Medical Necessity Statement*: Needs to be in hospital for management of DKA. Coding Level of Care Code Acute Code for [facility] Diagnoses DKA (diabetic ketoacidosis) E11.10 Nausea vomiting and diarrhea R11.2; R19.7 Leukocytosis D72.829 DM type 1 (diabetes mellitus, type 1) E10.9 ILIR (acute kidney injury) N17.9 Metabolic acidosis E87.20
[2023-01-19 20:33] LABS: Glucose Point of Care 273 mg/dL (70-110)
[2023-01-20] VITALS (8 sets, daily range): BP systolic 115–134; BP diastolic 75; PULSE 68–83; RESP 12–15; TEMP 36.6–36.7; O2SAT 95–98
[2023-01-20 05:15] LABS: Basophils # 0.1 10^3/uL (0.0-0.1); Eosinophils # 0.3 10^3/uL (0.0-0.8); Eosinophils % 3.2 %; Hematocrit 38.7 % (42.0-52.0); Hemoglobin 13.6 g/dL (11.7-16.6); Lymphocytes # 2.7 10^3/uL (0.8-4.8); Lymphocytes % 29.9 %; Mean Corpuscular HGB Conc 35.1 g/dL (30.0-36.0); Mean Corpuscular Hemoglobin 31.3 pg (28.0-34.0); Mean Corpuscular Volume 89.2 fl (80-94); Mean Platelet Volume 9.8 fL (7.4-10.4); Monocytes # 0.7 10^3/uL (0.2-0.9); Monocytes % 8.1 %; Neutrophils # 5.21 10^3/uL (1.8-7.7); Neutrophils % 57.4 %; Nucleated Red Blood Cells % 0 %; Platelet Count 254 10^3/cmm (130-400); Red Blood Count 4.34 10^6/uL (4.1-5.3); White Blood Count 9.1 10^3/uL (4.0-10.0)
[2023-01-20 05:38] LABS: Alanine Aminotransferase 15 U/L (0-41); Albumin Level 3.5 g/dL (3.5-5.2); Alkaline Phosphatase 93 U/L (40-130); Anion Gap 15.6 (5-19); Aspartate Amino Transferase 16 U/L (0-40); Blood Urea Nitrogen 7 mg/dL (6-20); Calcium 8.5 mg/dL (8.5-10.5); Carbon Dioxide 26 mmol/L (22-29); Chloride 101 mmol/L (98-107); Globulin 2.2 g/dL (1.3-4.6); Glomerular Filtration Rate 143.8 mL/min (90-130); Glucose 136 mg/dL (65-115); Osmolality Calculated 288 mOsm/kg (285-295); Potassium 3.6 mmol/L (3.5-5.1); Sodium 139 mmol/L (136-145); Total Protein 5.7 g/dL (6.6-8.7)
[2023-01-20 07:47] LABS: Glucose Point of Care 190 mg/dL (70-110)
[2023-01-20] MEDS: insulin lispro 100 unit/1 mL SUBCUT (08:20)
[2023-01-20] MEDS: pantoprazole DR 40 mg Tablet PO (08:20)
[2023-01-20] MEDS: amoxicillin-clav 875-125 mg Tablet 1 TAB PO (08:20)
--- NOTE | 2023-01-20 09:42 | PM.DCS ---
Discharge Providers Date of Admission: 01/18/23 01:09 Date of Discharge: January 20, 2023 Attending Provider at Admission: Lorenzo Goodrich Attending Provider at Discharge: Bryan Jiménez MD Diagnoses at Discharge Discharge Diagnosis (1) DKA (diabetic ketoacidosis): Status: Acute (2) Nausea vomiting and diarrhea: Status: Acute (3) Leukocytosis: Status: Acute (4) DM type 1 (diabetes mellitus, type 1): Status: Acute (5) ILIR (acute kidney injury): Status: Acute (6) Metabolic acidosis: Status: Acute Reason for Visit Reason for Visit: High blood glucose Hospital Course Hospital Course HPI:Lorenzo Goodrich 47-year-old gentleman with history of DM1, history of DKA x4, has had several days of nausea, vomiting and diarrhea, yesterday was assessed in [place] diagnosed with gastroenteritis, discharged home with antibiotics among other medications.? However, condition has worsened, he came here for reevaluation.? In ER he is ill-appearing, he is found to have sinus tachycardia 114-120, leukocytosis 29.9.? Afebrile.? Nauseated.? ABG 7.12/18 point 4/123/6.? Sodium 132, potassium 6.1, chloride 92, bicarb 9, anion gap 37.1.? BUN 17, creatinine 1.2.? Glucose 363.? Lactic acid 3.8.? T. bili 1.3.? Alk phos 154.? Lipase 9.? Unremarkable UA apart from positive for 3+ ketones.? Serum ketones negative.? CT abdomen pelvis pending. He received fluid bolus 1000 mL NS, is started on insulin drip. He otherwise normally follows with Dr. Burgess.? Is reportedly been set up for Dexcom monitor. Hospital course: Patient was admitted for the management of DKA, he was kept on DKA protocol, insulin drip IV hydration, n.p.o., frequent BMP monitoring electrolyte correction, responded well to above medical management and once anion gap was closed, he was transitioned to Lantus and sliding scale insulin, was tolerating diet well, discharged home on his home insulin regimen. patient also had significant leukocytosis, possibly secondary to, dehydration and stress marginalization, blood cultures were negative, he was afebrile hemodynamically stable, was also managed for mild ILIR likely secondary to dehydration, serum creatinine has normalized to the time of discharge At the time of discharge patient was continued on amoxicillin, which was recently started for, teeth infection. Overall patient responded well to above medical management and was discharged home in stable condition we will continue to follow his primary care physician as well as endocrine as outpatient. Physical Exam Const: COMMON NORMALS: patient oriented x3 HENMT: COMMON NORMALS: normocephalic and atraumatic HEAD & SCALP: normocephalic and atraumatic Resp: COMMON NORMALS: normal respiratory effort, No retractions, No use of accessory muscles and clear to auscultation bilaterally EFFORT & INSPECTION: Yes symmetric chest movement AUSCULTATION: clear to auscultation bilaterally Cardio: COMMON NORMALS: regular rate, regular rhythm, S1 normal heart sound present, S2 normal heart sound present, No gallops present (Cardio), No murmurs present (Cardio), No rub (Cardio) and Peripheral pulses 2+ throughout RATE: regular rate RHYTHM: regular rhythm HEART SOUNDS: S1 normal heart sound present and S2 normal heart sound present PERIPHERAL PULSES: Peripheral pulses 2+ throughout GI: COMMON NORMALS: Normal to inspection, nondistended, normoactive bowel sounds present, Soft to palpation, non-tender, No hepatosplenomegaly present and no masses AUSCULTATION: Yes normoactive bowel sounds PALPATION: Yes Soft to palpation and Yes No hepatosplenomegaly present RECTAL EXAM: Yes deferred Extremity: COMMON NORMALS: no clubbing, cyanosis or edema and no pedal edema Neuro: COMMON NORMALS: patient oriented x3 Discharge Data Studies Completed and Pending Completed Studies During Hospitalization Category Date Time Status CT abdomen pelvis w con* [id number] Stat Cat Scan 01/18/23 01:02 Completed CXRP [XR chest 1V portable [id number]] Routine Exams 01/19/23 07:02 Completed Pending at discharge Category Date Time Status Blood Culture Stat Lab 01/18/23 00:58 Results COVID OZH [Coronavirus PCR] Routine Lab 01/18/23 01:58 Uncollected Complete Blood Count w/Auto AM LABS Lab 01/21/23 04:00 Ordered Comprehensive Metabolic Panel AM LABS Lab 01/21/23 04:00 Ordered Radiology Impressions Abdomen/Pelvis CT 01/18/23 01:02 IMPRESSION: 1. No acute abnormality seen on the abdomen and pelvis CT. 2. Small hiatal hernia. Chest X-Ray 01/19/23 07:02 IMPRESSION: No acute cardiopulmonary disease on the chest radiograph. Laboratory Results WBC 9.1 10^3/uL (4.0-10.0) 01/20/23 04:42 RBC 4.34 10^6/uL (4.1-5.3) 01/20/23 04:42 Hgb 13.6 g/dL (11.7-16.6) 01/20/23 04:42 Hct 38.7 % (42.0-52.0) L 01/20/23 04:42 MCV 89.2 fl (80-94) 01/20/23 04:42 MCH 31.3 pg (28.0-34.0) 01/20/23 04:42 MCHC 35.1 g/dL (30.0-36.0) 01/20/23 04:42 RDW 13.0 % (12.1-15.1) 01/20/23 04:42 Plt Count 254 10^3/cmm (130-400) 01/20/23 04:42 MPV 9.8 fL (7.4-10.4) 01/20/23 04:42 Neut % (Auto) 57.4 % 01/20/23 04:42 Lymph % (Auto) 29.9 % 01/20/23 04:42 [place] % (Auto) 8.1 % 01/20/23 04:42 Eos % (Auto) 3.2 % 01/20/23 04:42 Baso % (Auto) 1.0 % 01/20/23 04:42 Neut # (Auto) 5.21 10^3/uL (1.8-7.7) 01/20/23 04:42 Lymph # (Auto) 2.7 10^3/uL (0.8-4.8) 01/20/23 04:42 [place] # (Auto) 0.7 10^3/uL (0.2-0.9) 01/20/23 04:42 Eos # (Auto) 0.3 10^3/uL (0.0-0.8) 01/20/23 04:42 Baso # (Auto) 0.1 10^3/uL (0.0-0.1) 01/20/23 04:42 Nucleated RBC % (auto) 0 % 01/20/23 04:42 Nucleated RBCs # 0.0 /100WBC 01/20/23 04:42 Specimen Type Arterial 01/18/23 00:31 Sample Site Radial, left 01/18/23 00:31 ABG pH 7.12 (7.35-7.45) L* 01/18/23 00:31 ABG pCO2 18.4 mmHg (35-45) L* 01/18/23 00:31 ABG pO2 123.0 mmHg (80.0-100.0) H 01/18/23 00:31 ABG HCO3 6.0 mmol/L (22-26) L 01/18/23 00:31 ABG Base Excess -21.1 mmol/L (-2.0-2.0) L 01/18/23 00:31 Terry Test Pos 01/18/23 00:31 Hematocrit 53.2 % (42-52) H 01/18/23 00:31 O2 Delivery Device None 01/18/23 00:31 Marine Technician ID [email or web address] 01/18/23 00:31 Sodium 139 mmol/L (136-145) 01/20/23 04:42 Potassium 3.6 mmol/L (3.5-5.1) 01/20/23 04:42 Chloride 101 mmol/L (98-107) 01/20/23 04:42 Carbon Dioxide 26 mmol/L (22-29) 01/20/23 04:42 Anion Gap 15.6 (5-19) 01/20/23 04:42 BUN 7 mg/dL (6-20) 01/20/23 04:42 Creatinine 0.6 mg/dL (0.7-1.2) L 01/20/23 04:42 GFR Calculation 143.8 mL/min (90-130) H 01/20/23 04:42 Glucose 136 mg/dL (65-115) H 01/20/23 04:42 POC Glucose 190 mg/dL (70-110) H 01/20/23 07:42 Calculated Osmolality 288 mOsm/kg (285-295) 01/20/23 04:42 Lactic Acid 3.8 mmol/L (0.5-2.2) H 01/17/23 23:30 Calcium 8.5 mg/dL (8.5-10.5) 01/20/23 04:42 Phosphorus 4.5 mg/dL (2.5-4.5) 01/18/23 02:36 Magnesium 1.8 mg/dL (1.7-2.3) 01/19/23 04:13 Total Bilirubin 2.0 mg/dL (0.15-1.2) H 01/20/23 04:42 AST 16 U/L (0-40) 01/20/23 04:42 ALT 15 U/L (0-41) 01/20/23 04:42 Alkaline Phosphatase 93 U/L (40-130) 01/20/23 04:42 Total Protein 5.7 g/dL (6.6-8.7) L 01/20/23 04:42 Albumin 3.5 g/dL (3.5-5.2) 01/20/23 04:42 Globulin 2.2 g/dL (1.3-4.6) 01/20/23 04:42 Lipase 9 U/L (13-60) L 01/17/23 23:30 Urine Color Colorless (Yellow) 01/17/23 23:30 Urine Appearance Clear (CLEAR) 01/17/23 23:30 Urine pH 5 (5-7) 01/17/23 23:30 Ur Specific [place] 1.025 (1.005-1.030) 01/17/23 23:30 Urine Protein Neg (Negative) 01/17/23 23:30 Urine Glucose (UA) 4+ (Normal) H 01/17/23 23:30 Urine Ketones 3+ (Negative) H 01/17/23 23:30 Urine Blood Neg (Negative) 01/17/23 23:30 Urine Nitrate Negative (Negative) 01/17/23 23:30 Urine Bilirubin Neg (Negative) 01/17/23 23:30 Urine Urobilinogen Norm mg/dL (Negative) 01/17/23 23:30 Ur Leukocyte Esterase Negative (Negative) 01/17/23 23:30 Serum Ketones Negative (Negative) 01/17/23 23:30 Vitals Last Vital Signs Temp 97.9 F 01/20/23 04:00 Pulse 70 01/20/23 08:00 Resp 14 01/20/23 08:00 BP 134/75 01/20/23 08:00 Pulse Ox 97 01/20/23 08:00 O2 Del Method 01/18/23 02:07 Discharge Plan Discharge Patient Disposition: Home Condition: Stable Prescriptions: Continued (DME) Dexcom G6 Transmitter Device See Rx Instructions .ROUTE .MEDSUPPLY Qty: 1 3RF Rx Instructions: change every 3 months (DME) Dexcom G6 Supervisor [place] Department Misc See Rx Instructions .ROUTE .MEDSUPPLY Qty: 1 3RF Rx Instructions: change every 90 days (DME) Dexcom G6 Sensor Device See Rx Instructions .ROUTE .MEDSUPPLY Qty: 9 3RF Rx Instructions: change every 10 days (DME) blood-glucose meter [Blood Glucose Monitoring] Kit See Rx Instructions .ROUTE .MEDSUPPLY Qty: 1 0RF Rx Instructions: As directed pen needle, diabetic [Pentips] 32 gauge x 5/32 needle See Rx Instructions .ROUTE .COMPLEX Qty: 600 3RF Dose Instruction: USE WITH LANTUS AND NOVOLOG UP TO 6 TIMES DAILY Rx Instructions: USE WITH LANTUS AND NOVOLOG UP TO 6 TIMES DAILY (DME) OneTouch Ultra Test Strip See Rx Instructions .ROUTE .COMPLEX Qty: 100 2RF Dose Instruction: USE TO CHECK BLOOD SUGAR THREE TIMES DAILY Rx Instructions: USE TO CHECK BLOOD SUGAR THREE TIMES DAILY insulin aspart U-100 [Novolog FlexPen U-100 Insulin] 100 unit/mL (3 mL) insulin pen See Rx Instructions .ROUTE .COMPLEX Qty: 45 1RF Dose Instruction: INJECT 6U SUBQ THREE TIMES DAILY DIRECTED Rx Instructions: inject sliding scale six to eight times a day as directed amoxicillin 875 mg Tablet 875 mg PO BID Rx Instructions: for 10 days (rx filled 01/17/23) magnesium 250 mg Tablet 500 mg PO DAILY ondansetron 4 mg Tablet,Disintegrating 4 mg PO Q8H PRN (Reason: Nausea And Vomiting) atorvastatin 40 mg tablet 40 mg PO BEDTIME loratadine 10 mg tablet 10 mg PO DAILY Lantus Solostar U-100 Insulin 100 unit/mL (3 mL) insulin pen 30 - 40 unit SUBCUT BEDTIME acetaminophen 500 mg Tablet 500 - 1,000 mg PO Q6H PRN (Reason: Pain) fluticasone propionate 50 mcg/actuation spray,suspension 2 spray intranasal DAILY PRN (Reason: Allergy Symptoms) Discharge Orders: Discharge Order (Routine); Ordered 01/20/23 Ordered By: Bryan Jiménez Referrals: Andrew Cole MD [Physician] - 01/25/23 10:30 am Patient Instructions: Type 1 Diabetes, Amoxicillin (By mouth), Atorvastatin (By mouth) (Lipitor), Insulin Aspart, Recombinant (By injection) (Novolog, Novolog..., Insulin Glargine (By injection), Diabetic Ketoacidosis (DC), Opioid Safety Discharge Attestations Time Spent in Discharge Care*: greater than 30 min Quality Metrics Clinical Quality Measures [ No reported AMI, CVA or VTE this stay] Coding Level of Care Code Acute Code for Chg Fwd Diagnoses DKA (diabetic ketoacidosis) E11.10 Nausea vomiting and diarrhea R11.2; R19.7 Leukocytosis D72.829 DM type 1 (diabetes mellitus, type 1) E10.9 ILIR (acute kidney injury) N17.9 Metabolic acidosis E87.20
[2023-02-17 09:02] LABS: ABG PH Result 7.12 (7.35-7.45)
[2023-02-17 09:03] LABS: ABG PCO2 18.4 mmHg (35-45)
== END 2023-01-20 10:00 | disposition home or self-care (01) | DRG 638 ==
LOC: ER 01-18 01:06 → ICU 01-18 01:10
PROVIDERS: Nurse Practitioner Family; Admitting Provider Internal Medicine; Emergency Provider Emergency Medicine; Visit Provider Internal Medicine
DX: E10.10 Type 1 diabetes mellitus with ketoacidosis without coma (principal); N17.9 Acute kidney failure, unspecified; Z79.4 Long term (current) use of insulin; D72.829 Elevated white blood cell count, unspecified; E86.0 Dehydration; E10.40 Type 1 diabetes mellitus with diabetic neuropathy, unspecified; E78.5 Hyperlipidemia, unspecified; F17.200 Nicotine dependence, unspecified, uncomplicated; K04.7 Periapical abscess without sinus
CPT/HCPCS: 36415; 36416; 36600; 71045; 74177; 80048; 80053; 81003; 82009; 82803; 82962; 83605; 83690; 83735; 84100; 85025; 87040; 96365; 96372; 96375; 96376; 99285; J1815; J2270; J2405; J7030; J7050; Q9967

== ENCOUNTER → 2024-01-03 10:12 | Outpatient (BNVA) | payer BC, MEDICAID, SELFPAY | PROVIDERS: PCP Nurse Practitioner Family; Visit Provider Nurse Practitioner Family | DX: E10.65 Type 1 diabetes mellitus with hyperglycemia (principal); E78.5 Hyperlipidemia, unspecified; E16.0 Drug-induced hypoglycemia without coma; T38.3X5A Adverse effect of insulin and oral hypoglycemic [antidiabetic] drugs, initial encounter | CPT/HCPCS: 80053; 80061; 82043; 83036 ==

== ENCOUNTER → 2024-01-23 14:40 | Outpatient (BNVA) | payer BC, MEDICAID, SELFPAY | PROVIDERS: PCP Nurse Practitioner Family; Visit Provider Nurse Practitioner Family | DX: R19.7 Diarrhea, unspecified (principal); R05.9 Cough, unspecified | CPT/HCPCS: 87400 ==

== ENCOUNTER 2024-04-18 08:47 | Observation (INO) | payer BC, MEDICAID, SELFPAY ==
[2024-04-18] VITALS (24 sets, daily range): BP systolic 130–158; BP diastolic 66–97; PULSE 81–124; RESP 1–25; TEMP 36.7–37.4; O2SAT 92–98; BMI 23.1
--- NOTE | 2024-04-18 09:00 | P.HP_ITS ---
Providers/Chief Complaint 2 Admitting Physician: Ivet Arceo MD Primary Care Provider: Jermain Young Chief Complaint: DKA History of Present Illness Villa Cooper is a 48 year old male presenting from an outside hospital with history of nausea vomiting and found to have DKA. Patient has a history of insulin-dependent diabetes and has been admitted for DKA in the past. He reports he believes he got stomach flu from eating some bad tacos, and had repetitive episodes of vomiting. He denies any diarrhea. He reports no abdominal pain. He is feeling better currently and believes he is able to drink some liquid without vomiting. He states his throat is sore. No history of fever at home, blood in stool, black or tarry stool. Review of Systems 2 General: Reports: 10 or more systems reviewed and unremarkable except in HPI and below Card: Denies: chest pain Resp: Denies: dyspnea GI: Reports: nausea and vomiting; Denies: abdominal pain, hematochezia or melena Medications/Allergies Home Medications Medication Instructions Recorded Confirmed Last Taken Type blood-glucose meter (Blood Glucose #1 ea 08/15/20 03/14/24 Unknown Rx Monitoring kit) fluticasone propionate 50 2 spray intranasal DAILY PRN 04/11/23 04/18/24 04/15/24 Rx mcg/actuation nasal Allergy Symptoms #16 grams spray,suspension loratadine 10 mg tablet 10 mg PO DAILY #90 tabs 04/11/23 04/18/24 Unknown Rx pen needle, diabetic 32 gauge x #600 ea 06/20/23 03/14/24 Unknown Rx 5/32 (Pentips) magnesium oxide 500 mg capsule 500 mg PO DAILY 08/18/23 04/18/24 04/15/24 History blood-glucose meter,continuous #1 ea 12/06/23 03/14/24 Unknown Rx (Dexcom G7 Integration Architect) sildenafil 100 mg tablet See Rx Instructions .Route 01/03/24 04/18/24 04/13/24 Rx .COMPLEX #14 tabs blood sugar diagnostic (OneTouch #300 ea 02/13/24 03/14/24 Unknown Rx Ultra Test strips) atorvastatin 10 mg tablet See Rx Instructions .Route 03/14/24 04/18/24 04/15/24 Rx .COMPLEX #90 tabs insulin aspart U-100 100 unit/mL See Rx Instructions .Route 03/14/24 04/18/24 3 Days Ago Rx (3 mL) subcutaneous pen .COMPLEX #45 mL ~04/15/24 insulin glargine 100 unit/mL (3 See Rx Instructions .Route 03/14/24 04/18/24 04/14/24 Rx mL) subcutaneous pen (Lantus .COMPLEX #30 mL Solostar U-100 Insulin) blood-glucose sensor (Dexcom G7 #9 ea 03/19/24 Unknown Rx Sensor device) PFSH Acute 2 PFSH: Medical History (Updated 04/18/24 @ 10:49 by Jose Ramirez MD) DKA (diabetic ketoacidosis) Influenza A Diarrhea Cough Nerve damage Acquired syphilis Metabolic acidosis ILIR (acute kidney injury) Nausea vomiting and diarrhea Leukocytosis DM type 1 (diabetes mellitus, type 1) DKA, type 1 GERD (gastroesophageal reflux disease) Hyperlipidemia Surgical History Hx of hernia repair Family History Father Cirrhosis of liver Cancer Diabetes Mother Hyperlipidemia Diabetes Social History Smoking and tobacco/nicotine status: current every day tobacco/nicotine user Substance/Drug Use: current Substance/Drug use frequency: daily Substance/Drug use type: Marijuana Other substance/drug use details: Occasional Household members: other Details: Daughter Physical Exam 2 Narrative: General exam is white male, no distress HEENT: Atraumatic normocephalic. Oropharynx clear Neck is supple no lymphadenopathy thyromegaly Cardiovascular regular rate and rhythm, borderline tachycardic, no murmur Lungs clear Abdomen is soft nontender with positive bowel sounds. No obvious organomegaly exams deferred Extremities no sinus clubbing edema, cap refill brisk Skin no rash Neuro no obvious focal deficits. Data 04/18/24 09:04 04/18/24 09:04 Other data: Outside laboratory on presentation on April 17 demonstrated white blood cell count of 39.6, hemoglobin 16.6, platelet count of 47. Initial sodium 127 potassium 5.4 chloride 79 bicarb BUN 41, creatinine 1.54, glucose 731. LFTs were normal. Lactic acid 4.2. Urinalysis negative. ABG demonstrated a pH of 7.24, pCO2 of 21, pO2 of [address] head demonstrated no concerns. Troponin was 26, and trend is not concerning. BMP prior to transfer demonstrated an anion gap of 11. He received significant fluids, Protonix, insulin, morphine, chlorpromazine at the outside hospital. A&P Assessment and plan (1) DKA (diabetic ketoacidosis): [facility] His anion gap there was 11 and orders on arrival to the ICU are based upon this. He was given 10 units of Lantus, sliding scale insulin, and a clear liquid diet. Repeat lab here, demonstrates an anion gap of 20 with a sugar of 137. Will continue hydration, recheck BMP at around 1400. If anion gap continues to close insulin drip will not be restarted. Protonix 40 mg IV every 12 hours Normal saline at 150 cc an hour Advance diet if tolerated Plan Full code Low risk for DVT, no prophylaxis Attestations 2 Medical Necessity Statement*: Will likely need less than 2 midnight stay for evaluation and treatment of DKA that is already partially been treated. Diagnoses DKA (diabetic ketoacidosis) E11.10 Time Spent (min) 56
[2024-04-18 09:20] LABS: Basophils % 0.2 %; Eosinophils % 0.1 %; Hematocrit 40.8 % (37-53); Lymphocytes # 1.5 10^3/uL (0.8-4.8); Lymphocytes % 8.3 %; Mean Corpuscular HGB Conc 35.5 g/dL (30-55); Mean Corpuscular Hemoglobin 30.9 pg (27-33); Mean Corpuscular Volume 86.8 fl (82-101); Mean Platelet Volume 9.3 fL (7.4-10.4); Monocytes # 1.5 10^3/uL (0.2-0.9); Neutrophils # 15.43 10^3/uL (1.8-7.7); Neutrophils % 82.8 %; Nucleated Red Blood Cells % 0 %; Platelet Count 286 10^3/cmm (157-399); Red Cell Distribution Width 13.2 % (12.1-15.1); White Blood Count 18.62 10^3/uL (3.29-11.43)
--- NOTE | 2024-04-18 09:28 | ECG_ITS ---
[facility] Test Date: 2024-04-18 Pat Name: Villa Cooper Department: Room: [facility] Gender: Male Patient Educator: : 1975 Requested By: Jose Beckford Order Number: [id number] Yovanny MD: Wallace Blount M.D. Measurements Intervals [place] Rate: 108 P: 80 WY: 136 QRS: 87 QRSD: 85 T: 55 QT: 314 QTc: 421 Interpretive Statements SINUS TACHYCARDIA No previous ECG available for comparison Electronically Signed On 04-18-2024 10:32:32 CDT by Wallace Blount M.D. [email or web address]
[2024-04-18] MEDS: pantoprazole 40 mg SDV IVP ×2 (09:40→20:46)
[2024-04-18] MEDS: insulin glargine 100 units/1 mL 10 UNIT SUBCUT (09:40)
[2024-04-18] MEDS: lidocaine 2% viscous 15 ML, aluminum-mag hydrox-simethicon 30 ML, sucralfate oral liq 1 GM PO (09:41)
[2024-04-18] MEDS: sodium chloride 0.9% 1,000 ML 150 ML IV ×3 (09:41→23:43)
[2024-04-18 09:43] LABS: Glucose Point of Care 136 mg/dL (70-110)
[2024-04-18 10:05] LABS: Lactate (Lactic Acid level) 0.9 mmol/L (0.5-2.2)
[2024-04-18 10:06] LABS: Alanine Aminotransferase 12 U/L (0-41); Albumin Level 4.1 g/dL (3.5-5.2); Alkaline Phosphatase 106 U/L (40-130); Anion Gap 20.5 (5-19); Aspartate Amino Transferase 18 U/L (0-40); Blood Urea Nitrogen 17 mg/dL (6-20); Calcium 8.6 mg/dL (8.5-10.5); Carbon Dioxide 20 mmol/L (22-29); Chloride 99 mmol/L (98-107); Globulin 2.6 g/dL (1.3-4.6); Glomerular Filtration Rate 102.7 mL/min (90-130); Glucose 137 mg/dL (65-115); Magnesium 2.1 mg/dL (1.7-2.3); Osmolality Calculated 286 mOsm/kg (285-295); Potassium 3.5 mmol/L (3.5-5.1); Sodium 136 mmol/L (136-145); Total Bilirubin 1.2 mg/dL (0.15-1.2); Total Protein 6.7 g/dL (6.6-8.7)
[2024-04-18 11:57] LABS: Glucose Point of Care 228 mg/dL (70-110)
[2024-04-18] MEDS: insulin lispro 100 unit/1 mL SUBCUT ×3 (12:09→20:46)
[2024-04-18 14:39] LABS: Anion Gap 20.2 (5-19); Blood Urea Nitrogen 16 mg/dL (6-20); Calcium 7.9 mg/dL (8.5-10.5); Carbon Dioxide 18 mmol/L (22-29); Chloride 96 mmol/L (98-107); Creatinine Clr Calc Pharmacy 108.8276; Glomerular Filtration Rate 89.7 mL/min (90-130); Glucose 362 mg/dL (65-115); Osmolality Calculated 286 mOsm/kg (285-295); Potassium 4.2 mmol/L (3.5-5.1); Sodium 130 mmol/L (136-145)
[2024-04-18] MEDS: insulin glargine 100 units/1 mL 30 UNIT SUBCUT (16:53)
[2024-04-18 17:02] LABS: Glucose Point of Care 328 mg/dL (70-110)
[2024-04-18 20:14] LABS: Anion Gap 23.8 (5-19); Blood Urea Nitrogen 12 mg/dL (6-20); Calcium 8.5 mg/dL (8.5-10.5); Carbon Dioxide 17 mmol/L (22-29); Chloride 97 mmol/L (98-107); Creatinine Clr Calc Pharmacy 108.8276; Glomerular Filtration Rate 89.7 mL/min (90-130); Glucose 240 mg/dL (65-115); Magnesium 2.2 mg/dL (1.7-2.3); Osmolality Calculated 286 mOsm/kg (285-295); Potassium 3.8 mmol/L (3.5-5.1); Sodium 134 mmol/L (136-145)
[2024-04-18 20:41] LABS: Glucose Point of Care 204 mg/dL (70-110)
[2024-04-18] MEDS: acetaminophen 325 mg Tablet 650 MG PO (20:52)
[2024-04-18 23:50] LABS: Glucose Point of Care 120 mg/dL (70-110)
[2024-04-19] VITALS (10 sets, daily range): BP systolic 129–165; BP diastolic 74–104; PULSE 76–103; RESP 7–20; TEMP 37.1; O2SAT 94–98
[2024-04-19] MEDS: ondansetron 2 mg/ML SDV 2 mL 4 MG IVP (02:39)
[2024-04-19 05:39] LABS: Basophils # 0.1 10^3/uL (0.0-0.1); Basophils % 0.4 %; Eosinophils # 0.1 10^3/uL (0.0-0.8); Eosinophils % 0.4 %; Hematocrit 38.8 % (37-53); Lymphocytes # 1.9 10^3/uL (0.8-4.8); Lymphocytes % 14.5 %; Mean Corpuscular HGB Conc 35.6 g/dL (30-55); Mean Corpuscular Hemoglobin 31.4 pg (27-33); Mean Corpuscular Volume 88.2 fl (82-101); Mean Platelet Volume 9.6 fL (7.4-10.4); Monocytes % 7.7 %; Neutrophils # 10.18 10^3/uL (1.8-7.7); Neutrophils % 76.4 %; Nucleated Red Blood Cells % 0 %; Platelet Count 239 10^3/cmm (157-399); Red Cell Distribution Width 13.4 % (12.1-15.1); White Blood Count 13.31 10^3/uL (3.29-11.43)
[2024-04-19 05:59] LABS: Alanine Aminotransferase 11 U/L (0-41); Albumin Level 3.7 g/dL (3.5-5.2); Alkaline Phosphatase 115 U/L (40-130); Anion Gap 19.7 (5-19); Aspartate Amino Transferase 15 U/L (0-40); Blood Urea Nitrogen 9 mg/dL (6-20); Calcium 8.2 mg/dL (8.5-10.5); Carbon Dioxide 20 mmol/L (22-29); Chloride 98 mmol/L (98-107); Creatinine Clr Calc Pharmacy 139.4626; Glomerular Filtration Rate 119.9 mL/min (90-130); Glucose 106 mg/dL (65-115); Osmolality Calculated 277 mOsm/kg (285-295); Potassium 3.7 mmol/L (3.5-5.1); Sodium 134 mmol/L (136-145); Total Bilirubin 1.8 mg/dL (0.15-1.2); Total Protein 5.7 g/dL (6.6-8.7)
[2024-04-19] MEDS: sodium chloride 0.9% 1,000 ML 150 ML IV (06:00)
[2024-04-19] MEDS: alum-mag-hydroxide-sime 30 mL UDC PO (07:08)
[2024-04-19 07:47] LABS: Glucose Point of Care 117 mg/dL (70-110)
--- NOTE | 2024-04-19 08:24 | PM.DCS ---
Discharge Providers Date of Admission: 04/18/24 08:47 Date of Discharge: April 19, 2024 Attending Provider at Admission: Ivet Arceo MD Attending Provider at Discharge: Jose Ramirez MD Primary Care Provider: Jermain Young Diagnoses at Discharge Discharge Diagnosis (1) DKA (diabetic ketoacidosis): Status: Acute Reason for Visit Reason for Visit: DKA Hospital Course Hospital Course Villa is a 48-year-old white male who presented to [place] emergency department with protracted vomiting, and not taking his insulin. He believes he had food poisoning, leading to DKA. At that institution he got a significant amount of IV fluids and was placed on an insulin drip. He was accepted in transfer on April 18 to our ICU on an insulin drip. His last BMP at that institution demonstrated closing of anion gap to around 11. Repeat labs here showed anion gap around 20. He was started on long-acting insulin, and a sliding scale. He had no further vomiting. He had no significant abdominal pain. The next day he had continued to improve. Anion gap was approximately 19, patient wished to go home. He had no evidence of nausea and vomiting, and sugar was coming under better control. He was tolerating long-acting insulin. It was thought with his progress and stability in his electrolytes he could be discharged home on his long-acting insulin as well as his short acting insulin regimen. He will follow back up with endocrinology. He was able to ask questions, and agreed with the plan. Physical Exam Narrative: General exam no distress Neck is supple Cardiovascular regular rate and rhythm Lungs clear Abdomen soft Extremities no cyanosis clubbing or edema Discharge Data Studies Completed and Pending Laboratory Results WBC 13.31 10^3/uL (3.29-11.43) H 04/19/24 04:31 RBC 4.40 10^6/uL (3.85-5.65) 04/19/24 04:31 Hgb 13.80 g/dL (11.27-16.99) 04/19/24 04:31 Hct 38.8 % (37-53) 04/19/24 04:31 MCV 88.2 fl (82-101) 04/19/24 04:31 MCH 31.4 pg (27-33) 04/19/24 04:31 MCHC 35.6 g/dL (30-55) 04/19/24 04:31 RDW 13.4 % (12.1-15.1) 04/19/24 04:31 Plt Count 239 10^3/cmm (157-399) 04/19/24 04:31 MPV 9.6 fL (7.4-10.4) 04/19/24 04:31 Neut % (Auto) 76.4 % 04/19/24 04:31 Lymph % (Auto) 14.5 % 04/19/24 04:31 [place] % (Auto) 7.7 % 04/19/24 04:31 Eos % (Auto) 0.4 % 04/19/24 04:31 Baso % (Auto) 0.4 % 04/19/24 04:31 Neut # (Auto) 10.18 10^3/uL (1.8-7.7) H 04/19/24 04:31 Lymph # (Auto) 1.9 10^3/uL (0.8-4.8) 04/19/24 04:31 [place] # (Auto) 1.0 10^3/uL (0.2-0.9) H 04/19/24 04:31 Eos # (Auto) 0.1 10^3/uL (0.0-0.8) 04/19/24 04:31 Baso # (Auto) 0.1 10^3/uL (0.0-0.1) 04/19/24 04:31 Nucleated RBC % (auto) 0 % 04/19/24 04:31 Nucleated RBCs # 0.0 /100WBC 04/19/24 04:31 Sodium 134 mmol/L (136-145) L 04/19/24 04:31 Potassium 3.7 mmol/L (3.5-5.1) 04/19/24 04:31 Chloride 98 mmol/L (98-107) 04/19/24 04:31 Carbon Dioxide 20 mmol/L (22-29) L 04/19/24 04:31 Anion Gap 19.7 (5-19) H 04/19/24 04:31 BUN 9 mg/dL (6-20) 04/19/24 04:31 Creatinine 0.7 mg/dL (0.7-1.2) 04/19/24 04:31 GFR Calculation 119.9 mL/min (90-130) 04/19/24 04:31 Glucose 106 mg/dL (65-115) 04/19/24 04:31 POC Glucose 117 mg/dL (70-110) H 04/19/24 07:40 Calculated Osmolality 277 mOsm/kg (285-295) L 04/19/24 04:31 Lactate 0.9 mmol/L (0.5-2.2) 04/18/24 09:04 Calcium 8.2 mg/dL (8.5-10.5) L 04/19/24 04:31 Magnesium 2.0 mg/dL (1.7-2.3) 04/19/24 04:31 Total Bilirubin 1.8 mg/dL (0.15-1.2) H 04/19/24 04:31 AST 15 U/L (0-40) 04/19/24 04:31 ALT 11 U/L (0-41) 04/19/24 04:31 Alkaline Phosphatase 115 U/L (40-130) 04/19/24 04:31 Total Protein 5.7 g/dL (6.6-8.7) L 04/19/24 04:31 Albumin 3.7 g/dL (3.5-5.2) 04/19/24 04:31 Globulin 2.0 g/dL (1.3-4.6) 04/19/24 04:31 Vitals Last Vital Signs Temp 98.8 F 04/19/24 05:23 Pulse 92 04/19/24 06:00 Resp 7 L 04/19/24 06:00 BP 146/94 04/19/24 06:00 Pulse Ox 98 04/19/24 06:00 O2 Del Method Room Air 04/18/24 18:00 Discharge Plan Discharge Patient Disposition: Home Condition: Stable Prescriptions: Continued magnesium oxide 500 mg capsule 500 mg PO DAILY sildenafil 100 mg tablet See Rx Instructions .ROUTE .COMPLEX Qty: 14 3RF Dose Instruction: TAKE ONE TABLET ORALLY DAILY NEEDED FOR SEXUAL ACTIVITY; ADMINISTER 30 MINUTES TO 4 HOURS BEFORE ACTIVITY Rx Instructions: TAKE ONE TABLET ORALLY DAILY NEEDED FOR SEXUAL ACTIVITY; ADMINISTER 30 MINUTES TO 4 HOURS BEFORE ACTIVITY atorvastatin 10 mg tablet See Rx Instructions .ROUTE .COMPLEX Qty: 90 1RF Dose Instruction: TAKE ONE TABLET BY MOUTH ONCE A DAY FOR CHOLESTEROL Rx Instructions: TAKE ONE TABLET BY MOUTH ONCE A DAY FOR CHOLESTEROL insulin aspart U-100 100 unit/mL (3 mL) insulin pen See Rx Instructions .ROUTE .COMPLEX Qty: 45 1RF Dose Instruction: INJECT PER SLIDING SCALE SUBQ THREE TIMES DAILY NEEDED IF BLOOD SUGAR IS 400 OR ABOVE TAKE 18 UNITS MAX 54 UNITS DAILY Rx Instructions: INJECT PER SLIDING SCALE SUBQ THREE TIMES DAILY NEEDED IF BLOOD SUGAR IS 400 OR ABOVE TAKE 18 UNITS MAX 54 UNITS DAILY Lantus Solostar U-100 Insulin 100 unit/mL (3 mL) insulin pen See Rx Instructions .ROUTE .COMPLEX Qty: 30 0RF Dose Instruction: INJECT 40 UNITS SUBQ ONCE A DAY DIRECTED EQ: LANTUS Rx Instructions: INJECT 45 UNITS SUBQ ONCE A DAY DIRECTED EQ: LANTUS loratadine 10 mg tablet 10 mg PO DAILY Qty: 90 1RF fluticasone propionate 50 mcg/actuation spray,suspension 2 spray intranasal DAILY PRN (Reason: Allergy Symptoms) Qty: 16 3RF (DME) Dexcom G7 Income Tax Return Preparer Misc See Rx Instructions .Route Qty: 1 0RF Rx Instructions: As directed (DME) blood-glucose meter [Blood Glucose Monitoring] Kit See Rx Instructions .ROUTE .MEDSUPPLY Qty: 1 0RF Rx Instructions: As directed (DME) pen needle, diabetic [Pentips] 32 gauge x 5/32 needle See Rx Instructions .ROUTE .COMPLEX Qty: 600 2RF Dose Instruction: USE WITH LANTUS AND NOVOLOG UP TO 6 TIMES DAILY Rx Instructions: USE WITH LANTUS AND NOVOLOG UP TO 6 TIMES DAILY (DME) OneTouch Ultra Test Strip See Rx Instructions .ROUTE .COMPLEX Qty: 300 0RF Dose Instruction: USE TO CHECK BLOOD SUGAR THREE TIMES DAILY Rx Instructions: USE TO CHECK BLOOD SUGAR THREE TIMES DAILY (DME) Dexcom G7 Sensor Device See Rx Instructions .Route Qty: 9 0RF Rx Instructions: As directed Discharge Orders: Discharge Order (Routine); Ordered 04/19/24 Ordered By: Jose Ramirez Referrals: Jermain Young FNP [Primary Care Provider] - 4-7 days Libertad Burgess MD [Physician] - 1 week (Follow-up DKA) Discharge Diet: Diabetic Patient Instructions: Opioid Safety Activity Restrictions/Additional Instructions: Take all medicine as prescribed Follow-up with primary care provider as appropriate Follow-up with library science professor 1 week Do not miss any doses of long acting insulin Discharge Attestations Time Spent in Discharge Care*: greater than 30 min (36) Quality Metrics Clinical Quality Measures [ No reported AMI, CVA or VTE this stay] Coding Level of Care Code 83191 Total time (in minutes) for Discharge: 36 Diagnoses DKA (diabetic ketoacidosis) E11.10
[2024-04-19] MEDS: insulin glargine 100 units/1 mL 30 UNIT SUBCUT (09:32)
--- NOTE | 2024-04-19 10:14 | PC.NURSE ---
pt discharged home with family. IV removed from the right forearm cath tip intact. Pt tolerated well. Discharge instructions given to patient and family no questions at this time regarding medications or followup appointments. Pt escorted out to private vehicle. No concerns noted.
== END 2024-04-19 10:10 | disposition home or self-care (01) ==
PROVIDERS: Admitting Provider Student in an Organized Health Care Education/Training Program; PCP Nurse Practitioner Family; Visit Provider Internal Medicine
DX: E11.10 Type 2 diabetes mellitus with ketoacidosis without coma (principal); Z79.4 Long term (current) use of insulin; K21.9 Gastro-esophageal reflux disease without esophagitis; E78.5 Hyperlipidemia, unspecified
CPT/HCPCS: 36415; 36416; 80048; 80053; 82962; 83605; 83735; 85025; 93005; 96372; C9113; G0378; G0379; J1815; J2405; J7030

== ENCOUNTER → 2024-04-24 09:54 | Outpatient (BNVA) | payer BC, MEDICAID, SELFPAY | PROVIDERS: PCP Nurse Practitioner Family; Visit Provider Nurse Practitioner Family | DX: E10.9 Type 1 diabetes mellitus without complications (principal); Z09 Encounter for follow-up examination after completed treatment for conditions other than malignant neoplasm; K12.0 Recurrent oral aphthae; F43.10 Post-traumatic stress disorder, unspecified; F12.10 Cannabis abuse, uncomplicated | CPT/HCPCS: 80053; 85025 ==

== ENCOUNTER → 2024-07-18 13:08 | Outpatient (BNVA) | payer BC, MEDICAID, SELFPAY | PROVIDERS: PCP Internal Medicine; Visit Provider Nurse Practitioner Family | DX: E10.65 Type 1 diabetes mellitus with hyperglycemia (principal); E78.5 Hyperlipidemia, unspecified; E16.0 Drug-induced hypoglycemia without coma; T38.3X5A Adverse effect of insulin and oral hypoglycemic [antidiabetic] drugs, initial encounter | CPT/HCPCS: 80053; 80061; 82043; 83036 ==

== ENCOUNTER → 2025-08-08 15:55 | Outpatient (BNVA) | payer BC, MEDICAID, SELFPAY | PROVIDERS: PCP Internal Medicine; Visit Provider Nurse Practitioner Family | DX: M10.9 Gout, unspecified (principal); M89.8X7 Other specified disorders of bone, ankle and foot; M19.011 Primary osteoarthritis, right shoulder; M19.012 Primary osteoarthritis, left shoulder; E78.5 Hyperlipidemia, unspecified; Z13.6 Encounter for screening for cardiovascular disorders; Z79.899 Other long term (current) drug therapy | CPT/HCPCS: 73030; 73630; 80053; 80061; 81003; 82306; 84443; 84550; 85025; G0103 ==

== ENCOUNTER → 2025-08-15 15:15 | Outpatient (BNVA) | payer BC, MEDICAID, SELFPAY | PROVIDERS: PCP Internal Medicine; Visit Provider Nurse Practitioner Family | DX: M19.011 Primary osteoarthritis, right shoulder (principal); M19.012 Primary osteoarthritis, left shoulder; M10.9 Gout, unspecified | CPT/HCPCS: 85651; 86038; 86140 ==

== ENCOUNTER → 2025-09-16 13:53 | Outpatient (BNVA) | payer BC, MEDICAID, SELFPAY | PROVIDERS: PCP Nurse Practitioner Family; Visit Provider Specialist | DX: M19.011 Primary osteoarthritis, right shoulder (principal); M19.012 Primary osteoarthritis, left shoulder; M25.811 Other specified joint disorders, right shoulder; M75.41 Impingement syndrome of right shoulder; M75.42 Impingement syndrome of left shoulder | CPT/HCPCS: 73030 ==

== ENCOUNTER 2025-10-01 10:56 | Outpatient (CLI) | payer BC, MEDICAID, SELFPAY ==
--- NOTE | 2025-10-01 11:00 | MRR_ITS ---
PROCEDURE INFORMATION: Exam: MR Right Upper Extremity Joint Without Contrast; Shoulder Exam date and time: 10/01/2025 11:14 AM Age: 50 years old Clinical indication: Shoulder; Right; Injury x 3 months, limited motion/pain since; Additional info: Right shoulder pain TECHNIQUE: Imaging protocol: Magnetic resonance imaging of the right upper extremity without contrast. Exam focused on the shoulder. COMPARISON: CR XR shoulder RT min 2V* [id number] 09/16/2025 2:12 PM FINDINGS: Bones/joints: The cartilaginous coverings are intact and normal in appearance. No joint effusion. There is a type 2, curved acromial process. Glenoid labrum: The glenoid labrum is unremarkable. Supraspinatus tendon: Unremarkable. No evidence of tear. Infraspinatus tendon: Unremarkable. No evidence of tear. Subscapularis tendon: Unremarkable. No evidence of tear. Teres minor tendon: Unremarkable. No evidence of tear. Tendon of biceps brachii: Long bicipital tendinopathy of the intra-articular portion of the tendon. Coracohumeral ligament: The coracohumeral ligament is unremarkable. Glenohumeral ligaments: The glenohumeral ligaments are unremarkable. Soft tissues: There is no significant atrophy of the rotator cuff muscles. Other findings: The visible skeletal structures are unremarkable. MR/MR shoulder RT wo con* [id number] IMPRESSION: 1. Long bicipital tendinopathy of the intra-articular portion of the tendon.
== END 2025-10-01 10:57 | disposition home or self-care (01) ==
LOC: RAD 10:58
PROVIDERS: PCP Nurse Practitioner Family; Visit Provider Specialist
DX: M25.511 Pain in right shoulder (principal); M25.811 Other specified joint disorders, right shoulder; M75.21 Bicipital tendinitis, right shoulder
CPT/HCPCS: 73221